=== PATIENT | female | born 1975 | race African-American/Black ===

== ENCOUNTER 2017-04-15 08:28 | Emergency (ER) | payer MEDICAID ==
[~2017-04-15] VITALS: Ht 170.2 cm; Wt 132.0 kg
[~2017-04-15 08:28] MED LIST: ALBU8I INH; AMLO5TAB22 PO; CLON1TAB PO; LORTA5 PO; PROT40TA PO; WALKER ROLLING; Z.0.COMMODE-3:1; Z.0.WALKERFRONT; Z.0.WHEELBAR
[2017-04-15 08:33] VITALS: BP 160/84; PULSE 68; RESP 22; TEMP 98.4; O2SAT 98
[2017-04-15] MEDS ORDERED: VENTAER INH (09:02)
[2017-04-15] MEDS ORDERED: KETOROLAC TROMETHAMINE 30 MG/ML (IVP) VIAL IV PUSH ONE (09:30)
[2017-04-15] MEDS: RESP: ALBUTEROL 2.5 MG/3 ML NEB (SCH) INH (09:43)
[2017-04-15] MEDS ORDERED: RESP: ALBUTEROL 2.5 MG/IPRATROPIUM 0.5 MG NEB (SCH) INH ONE (09:45)
[2017-04-15 09:54] LABS: AUTOMATED NEUTROPHIL # 9.2 TH/MM3 (1.8-7.7); BASOPHIL % 0.4 % (0.0-2.0); EOSINOPHIL % 0.1 % (0.0-4.0); HEMATOCRIT 37.6 % (35.0-46.0); HEMOGLOBIN 12.7 GM/DL (11.6-15.3); MEAN CELL VOLUME 88.6 FL (80.0-100.0); MEAN CORPUSCULAR HEMOGLOBIN 29.9 PG (27.0-34.0); MEAN CORPUSCULAR HGB CONC 33.7 % (32.0-36.0); MEAN PLATELET VOLUME 8.9 FL (7.0-11.0); MONO % 9.4 % (0.0-8.0); MONOCYTE # 1.2 TH/MM3 (0-0.9); NEUT % 74.1 % (16.0-70.0); PLATELET COUNT 235 TH/MM3 (150-450); RED BLOOD COUNT 4.24 MIL/MM3 (4.00-5.30); RED CELL DISTRIBUTION WIDTH 13.5 % (11.6-17.2); WHITE BLOOD COUNT 12.4 TH/MM3 (4.0-11.0)
--- NOTE | 2017-04-15 10:05 | PD ---
HPI Chief Complaint: Cold / Flu Symptoms Time Seen by Provider: 09:25 Travel History International Travel<30 days: No Contact w/Intl Traveler<30days: No Traveled to known affect area: No History of Present Illness HPI This is a 41-year-old female with a history of multiple sclerosis, presents today with moist URI symptoms. Patient reports over the last 2 days she's had cold and flu symptoms. She states that she's had progressive cough with productive phlegm. She reports brown colored phlegm. She reports subjective fevers although has not taken her temperature. The patient also reports that she fell this morning striking her left lateral chest wall and left hip. She is able to ambulatory however reports pain. Patient has ill contacts with a friend who has flulike symptoms. Patient reports severe weakness associated with her cough and congestion. PFSH Past Medical History Anxiety: Yes Depression: Yes Cancer: No Cardiovascular Problems: Yes Chest Pain: Yes (PALPITATIONS) Diabetes: Yes Diminished Hearing: No Endocrine: No Gastrointestinal Disorders: Yes GERD: Yes Genitourinary: Yes Headaches: Yes Hypertension: Yes Immune Disorder: No Implanted Vascular Access Dvce: No Musculoskeletal: No Neurologic: Yes (MS) Psychiatric: No Reproductive: No Respiratory: Yes Immunizations Current: No Migraines: Yes Seizures: No ?: Not LMP: 04/01/2017 Menopausal: No : 1 Para: 1 Past Surgical History Abdominal Surgery: Yes (GALLBLADDER REMOVED) Cholecystectomy: Yes Tonsillectomy: Yes Other Surgery: Yes (Adnoids and Tonsils) Social History Alcohol Use: No Tobacco Use: No Substance Use: Yes (MARIJUANA OCCASIONALLY) Allergies-Medications (Allergen,Severity, Reaction): Coded Allergies: penicillin G (Unverified Allergy, Severe, 04/15/17) Reported Meds & Prescriptions Reported Meds & Active Scripts Active Zithromax Z-Tereso (Azithromycin) 250 Mg Dspk 250 Mg PO DIRECTED 500 MG (2 tabs) day 1, then 1 tab days 2-5. Guaifenesin-Codeine Liq 100-10 Mg/5 Ml Soln 10 Ml PO Q6H PRN Ibuprofen 600 Mg Tab 600 Mg PO Q6H PRN Reported Gabapentin 100 Mg Cap 100 Mg PO TID Omeprazole 20 Mg Tab 20 Mg PO DAILY Ventolin Hfa 18 GM Inh (Albuterol Sulfate) 90 Mcg/Act Aer 1 Puff INH Q4H PRN Review of Systems Except as stated in HPI: all other systems reviewed are Neg General / Constitutional: Positive: Fever, No: Chills (subjective) HENT: Positive: Lightheadedness, Congestion, Other (sinus congestion), No: Headaches, Neck Pain Cardiovascular: No: Chest Pain or Discomfort, Palpitations Respiratory: Positive: Cough (productive brown phlegm), Shortness of Breath, Wheezing Gastrointestinal: No: Nausea, Vomiting, Abdominal Pain Genitourinary: No: Frequency, Dysuria Musculoskeletal: Positive: Weakness (neurologic), Pain (left lateral ribs and left hip) Neurologic: Positive: Weakness (generalized), No: Dizziness, Headache Physical Exam Narrative GENERAL: Well-developed female with obvious coughing when I entered the room. SKIN: Focused skin assessment warm/dry. HEAD: Atraumatic. Normocephalic. EYES: No scleral icterus. No injection or drainage. ENT: No nasal bleeding or discharge. Mucous membranes pink and moist. Positive rhinorrhea. NECK: Trachea midline. No JVD. CARDIOVASCULAR: Sinus tachycardia with a rate of 104 No murmur appreciated. RESPIRATORY: Positive mild accessory muscle use. Coarse rhonchi bilaterally. GASTROINTESTINAL: Abdomen soft, non-tender, nondistended. MUSCULOSKELETAL: No obvious deformities. No clubbing. No cyanosis. No edema. Tenderness over the left lateral hip. No shortening of the leg. NEUROLOGICAL: Awake and alert. No obvious cranial nerve deficits. Motor grossly within normal limits. Normal speech. Data Data Last Documented VS Vital Signs Date Time Temp Pulse Resp B/P (MAP) Pulse Ox O2 Delivery O2 Flow Rate FiO2 04/15/17 09:59 (109) Room Air 04/15/17 08:53 93 12 98 04/15/17 08:33 98.4 Orders Orders Complete Blood Count With Diff (04/15/17 09:25) Comprehensive Metabolic Panel (04/15/17 09:25) Ckmb (Isoenzyme) Profile (04/15/17 09:25) Troponin I (04/15/17 09:25) Blood Culture (04/15/17 09:25) Influenzae A/B Antigen (04/15/17 09:25) Iv Access Insert/Monitor (04/15/17 09:25) Ecg Monitoring (04/15/17 09:25) Oximetry (04/15/17 09:25) Ketorolac Inj (Toradol Inj) (04/15/17 09:30) Ribs, Uni (W/Exp Cxr-Min 3vw) (04/15/17 09:25) Hip, Uni(Ap&Lat) Wo Ap Pelvis (04/15/17 09:25) Lactic Acid (04/15/17 09:34) Albuterol-Ipratropium Neb (Duoneb Neb) (04/15/17 09:45) Albuterol Neb (Albuterol Neb) (04/15/17 09:45) CKMB (04/15/17 09:35) CKMB% (04/15/17 09:35) Labs Laboratory Tests Test 04/15/17 09:35 White Blood Count 12.4 TH/MM3 Red Blood Count 4.24 MIL/MM3 Hemoglobin 12.7 GM/DL Hematocrit 37.6 % Mean Corpuscular Volume 88.6 FL Mean Corpuscular Hemoglobin 29.9 PG Mean Corpuscular Hemoglobin Concent 33.7 % Red Cell Distribution Width 13.5 % Platelet Count 235 TH/MM3 Mean Platelet Volume 8.9 FL Neutrophils (%) (Auto) 74.1 % Lymphocytes (%) (Auto) 16.0 % Monocytes (%) (Auto) 9.4 % Eosinophils (%) (Auto) 0.1 % Basophils (%) (Auto) 0.4 % Neutrophils # (Auto) 9.2 TH/MM3 Lymphocytes # (Auto) 2.0 TH/MM3 Monocytes # (Auto) 1.2 TH/MM3 Eosinophils # (Auto) 0.0 TH/MM3 Basophils # (Auto) 0.0 TH/MM3 CBC Comment DIFF FINAL Differential Comment Blood Urea Nitrogen 5 MG/DL Creatinine 0.58 MG/DL Random Glucose 115 MG/DL Total Protein 8.1 GM/DL Albumin 3.3 GM/DL Calcium Level 8.7 MG/DL Alkaline Phosphatase 51 U/L Aspartate Amino Transf (AST/SGOT) 29 U/L Alanine Aminotransferase (ALT/SGPT) 18 U/L Total Bilirubin 0.3 MG/DL Sodium Level 134 MEQ/L Potassium Level 4.4 MEQ/L Chloride Level 105 MEQ/L Carbon Dioxide Level 19.8 MEQ/L Anion Gap 9 MEQ/L Estimat Glomerular Filtration Rate 140 ML/MIN Lactic Acid Level 1.5 mmol/L Total Creatine Kinase 214 U/L Creatine Kinase MB LESS THAN 0.5 NG/ML Creatine Kinase MB % 0.2 % Troponin I LESS THAN 0.02 NG/ML MDM Medical Decision Making Medical Screen Exam Complete: Yes Emergency Medical Condition: Yes Differential Diagnosis Pneumonia versus bronchitis versus left rib fractures versus left hip fracture versus contusion Narrative Course 41 year old female with history of multiple sclerosis, presents today with points of cold and flu symptoms. The patient has coarse rhonchi in her upper respiratory area. Chest x-ray shows no evidence of acute infiltrate. X-rays of her left ribs and left hip show no evidence of acute injury. The patient has subjective fevers and chills. She has positive influenza test. She is 4 days out from her symptoms. At this point she will not benefit from the Tamiflu. She will be given a prescription for cough syrup with codeine. She' ll also be given a prescription for Motrin as she has Medicaid and states she cannot afford Motrin. She is instructed to return if she starts feeling worse. Diagnosis Primary Impression: Influenza A Additional Impressions: cough/bronchitis Multiple sclerosis Contusion of rib on left side Contusion of left hip Additional Instructions: Ice 24 hours to ribs and hip, then moist. Return if feeling worse. Drink plenty of fluids. You have influenza infection and are contagious. Med/Other Pt SpecificInfo: Prescription(s) given Scripts Azithromycin (Zithromax Z-Tereso) 250 Mg Dspk 250 MG PO DIRECTED for Infection, #1 DSPK 0 Refills 500 MG (2 tabs) day 1, then 1 tab days 2-5. Prov: Willis Boudreaux MD 04/15/17 Guaifenesin-Codeine Liq (Guaifenesin-Codeine Liq) 100-10 Mg/5 Ml Soln 10 ML PO Q6H Y for COUGH, #1 BOTTLE 0 Refills Prov: Willis Boudreaux MD 04/15/17 Ibuprofen (Ibuprofen) 600 Mg Tab 600 MG PO Q6H Y for Pain/Inflammation, #40 TAB 0 Refills Prov: Willis Boudreaux MD 04/15/17 Disposition: 01 DISCHARGE HOME Condition: Stable Willis Boudreaux MD Apr 15, 2017 10:05
[2017-04-15 10:07] LABS: ALBUMIN 3.3 GM/DL (3.4-5.0); ALT (GPT) 18 U/L (10-53); AST (GOT) 29 U/L (15-37); BICARBONATE 19.8 MEQ/L (21.0-32.0); BLOOD UREA NITROGEN 5 MG/DL (7-18); CALCIUM 8.7 MG/DL (8.5-10.1); CHLORIDE 105 MEQ/L (98-107); CREATININE 0.58 MG/DL (0.50-1.00); GLOMERULAR FILTRATION RATE 140 ML/MIN (>89); GLUCOSE,RANDOM 115 MG/DL (74-106); SODIUM (NA) 134 MEQ/L (136-145)
[2017-04-15 10:14] LABS: ALKALINE PHOSPHATASE 51 U/L (45-117); TOTAL BILIRUBIN ADULT 0.3 MG/DL (0.2-1.0); TOTAL PROTEIN 8.1 GM/DL (6.4-8.2); TROPONIN I LESS THAN 0.02 NG/ML (0.02-0.05)
--- NOTE | 2017-04-15 10:40 | RADRPT ---
EXAM DATE/TIME: 04/15/2017 10:10 [facility] COMPARISON: No previous studies available for comparison. INDICATIONS : Shortness of breath, chest pain and cough. MEDICAL HISTORY : Multiple sclerosis. Hypertension Gastroesophageal reflux disease. SURGICAL HISTORY : Cholecystectomy. Tonsillectomy. ENCOUNTER: Initial ACUITY: 4 - 6 days PAIN SCORE: 4/10 LOCATION: Left chest FINDINGS: Multiple views of the left ribs were performed. There is no evidence of displaced fracture. No dest ructive lesions or areas of periosteal thickening are seen. Expiratory view of the chest is negative for pneumothorax. The mediastinal structures are midline. CONCLUSION: Unremarakble examination of the left ribs and chest. Pascual Bucio MD on April 15, 2017 at 10:35 Board Certified Radiologist. This report was verified electronically.
--- NOTE | 2017-04-15 10:41 | RADRPT ---
EXAM DATE/TIME: 04/15/2017 10:17 [facility] COMPARISON: No previous studies available for comparison. INDICATIONS : Left hip pain, fall. MEDICAL HISTORY : Hypertension. Multiple sclerosis. SURGICAL HISTORY : Tonsillectomy. Cholecystectomy. ENCOUNTER: Initial ACUITY: 4 - 6 days PAIN SCORE: 10/10 LOCATION: Left hip FINDINGS: There is mild superior joint space narrowing, subchondral sclerosis and marginal osteophyte formation . No evidence of fracture or dislocation. The adjacent pelvis appears intact. Soft tissues are unrema rkable. CONCLUSION: Degenerative arthritic change. No acute bony findings. Pascual Bucio MD on April 15, 2017 at 10:39 Board Certified Radiologist. This report was verified electronically.
[2017-04-15] MEDS ORDERED: GABA100C4 PO (11:23)
[2017-04-15] MEDS ORDERED: OMEP20TA93 PO (11:23)
[2017-04-15] MEDS ORDERED: IBUP-232 PO (11:33)
[2017-04-15] MEDS ORDERED: ZITHTAB PO (11:33)
[2017-04-15] MEDS ORDERED: GUAI100S5 PO (11:33)
== END 2017-04-15 12:02 | disposition home or self-care (01) ==
LOC: NEPE 08:28
DX: J09.X2 Influenza due to identified novel influenza A virus with other respiratory manifestations (principal); G35 Multiple sclerosis; K21.9 Gastro-esophageal reflux disease without esophagitis; R06.02 Shortness of breath; S20.212A Contusion of left front wall of thorax, initial encounter; S70.02XA Contusion of left hip, initial encounter; W19.XXXA Unspecified fall, initial encounter
CPT/HCPCS: 71101; 73502; 80053; 82550; 82552; 83605; 84484; 85025; 87040; 87804; 94640; 94664; 96374; 99284; J1885; J7613

== ENCOUNTER 2017-10-12 09:46 | Inpatient (IN) | payer MEDICAID ==
[2017-10-12] VITALS (7 sets, daily range): BP systolic 130–162; BP diastolic 73–99; PULSE 78–116; RESP 18–20; TEMP 98–98.6; O2SAT 94–100
[~2017-10-12] VITALS: Ht 167.6 cm; Wt 145.6 kg
[~2017-10-12 09:46] MED LIST changes: -ALBU8I INH; -AMLO5TAB22 PO; -CLON1TAB PO; +GABA100C4 PO; +GUAI100S5 PO; +IBUP-232 PO; -LORTA5 PO; +OMEP20TA93 PO; -PROT40TA PO; +VENTAER INH; -WALKER ROLLING; -Z.0.COMMODE-3:1; -Z.0.WALKERFRONT; -Z.0.WHEELBAR; +ZITHTAB PO
[2017-10-12] MEDS ORDERED: SODIUM CHLORIDE 0.9% FLUSH 10 ML FLUSH IVF PRN (10:15)
[2017-10-12] MEDS ORDERED: MORPHINE SULFATE 4 MG/ML INJ IV PUSH ONE ×2 (10:15→13:15)
[2017-10-12] MEDS ORDERED: methylPREDNISolone SOD SUCC 125 MG/2 ML VIAL IV PUSH ONE (10:15)
[2017-10-12] MEDS ORDERED: ONDANSETRON ODT 4 MG TAB PO ONE (10:15)
[2017-10-12 10:45] LABS: AUTOMATED NEUTROPHIL # 8.9 TH/MM3 (1.8-7.7); BASOPHIL % 0.2 % (0.0-2.0); EOSINOPHIL # 0.1 TH/MM3 (0-0.4); EOSINOPHIL % 0.9 % (0.0-4.0); HEMATOCRIT 37.7 % (35.0-46.0); HEMOGLOBIN 12.8 GM/DL (11.6-15.3); LYMPH % 20.9 % (9.0-44.0); LYMPHOCYTE # 2.7 TH/MM3 (1.0-4.8); MEAN CELL VOLUME 90.5 FL (80.0-100.0); MEAN CORPUSCULAR HEMOGLOBIN 30.9 PG (27.0-34.0); MEAN CORPUSCULAR HGB CONC 34.1 % (32.0-36.0); MEAN PLATELET VOLUME 8.4 FL (7.0-11.0); MONO % 8.1 % (0.0-8.0); NEUT % 69.9 % (16.0-70.0); PLATELET COUNT 263 TH/MM3 (150-450); RED BLOOD COUNT 4.16 MIL/MM3 (4.00-5.30); RED CELL DISTRIBUTION WIDTH 14.1 % (11.6-17.2); WHITE BLOOD COUNT 12.8 TH/MM3 (4.0-11.0)
--- NOTE | 2017-10-12 10:52 | PD ---
HPI Chief Complaint: Pain: Acute or Chronic Time Seen by Provider: 10:13 Travel History International Travel<30 days: No Contact w/Intl Traveler<30days: No Traveled to known affect area: No History of Present Illness HPI 42-year-old female with history of multiple sclerosis diagnosed in 1999, presents emergency department with one-week history of increasing pain and weakness in the right lower extremity. Patient was hospitalized for similar symptoms in the left leg in July 2016. Patient states he is currently not taking any medication for her multiple sclerosis, and has not been following up with her neurologist. She also has complaints of increased cough, shortness of breath and wheezing over the past week as well. Patient has history of recurrent bronchitis for which he only uses Ventolin as needed. She states in the last several days she has had increased productive cough of brown sputum. She denies fever, chills, nausea, vomiting, or abdominal pain. Patient denies changes in her bowels or bladder. Patient denies numbness in the right lower extremity, but has pain in the right lower back and hip. She has weakness in the right leg. She denies weakness in the upper extremities, left leg, or other focal deficits. Pain is 8/10. PFSH Past Medical History Anxiety: Yes Depression: Yes Cancer: No Cardiovascular Problems: Yes (HTN) Chest Pain: Yes (PALPITATIONS) Diabetes: Yes Diminished Hearing: No Endocrine: No Gastrointestinal Disorders: Yes GERD: Yes Genitourinary: Yes Headaches: Yes Hypertension: Yes Immune Disorder: No Implanted Vascular Access Dvce: No Musculoskeletal: No Neurologic: Yes (MS) Psychiatric: No Reproductive: No Respiratory: Yes Immunizations Current: No Migraines: Yes Seizures: No ?: Not LMP: 10/10/17 Menopausal: No : 1 Para: 1 Past Surgical History Abdominal Surgery: Yes (GALLBLADDER REMOVED) Cholecystectomy: Yes Tonsillectomy: Yes Other Surgery: Yes (Adnoids and Tonsils) Social History Alcohol Use: No Tobacco Use: No Substance Use: Yes (MARIJUANA OCCASIONALLY) Allergies-Medications (Allergen,Severity, Reaction): Coded Allergies: penicillin G (Unverified Allergy, Severe, 04/15/17) Reported Meds & Prescriptions Reported Meds & Active Scripts Active Zithromax Z-Tereso (Azithromycin) 250 Mg Dspk 250 Mg PO DIRECTED 500 MG (2 tabs) day 1, then 1 tab days 2-5. Guaifenesin-Codeine Liq 100-10 Mg/5 Ml Soln 10 Ml PO Q6H PRN Ibuprofen 600 Mg Tab 600 Mg PO Q6H PRN Reported Gabapentin 100 Mg Cap 100 Mg PO TID Omeprazole 20 Mg Tab 20 Mg PO DAILY Ventolin Hfa 18 GM Inh (Albuterol Sulfate) 90 Mcg/Act Aer 1 Puff INH Q4H PRN Review of Systems Except as stated in HPI: all other systems reviewed are Neg General / Constitutional: No: Fever, Chills Eyes: No: Visual changes HENT: Positive: Rhinitis, Rhinorrhea, Congestion, No: Headaches, Vertigo, Lightheadedness, Sore Throat, Nosebleed, Neck Stiffness, Neck Pain, Earache Cardiovascular: No: Chest Pain or Discomfort Respiratory: Positive: Cough, Shortness of Breath, Wheezing Gastrointestinal: No: Nausea, Vomiting, Diarrhea, Abdominal Pain Genitourinary: No: Dysuria Musculoskeletal: Positive: Myalgias, Arthralgias, Limited ROM, Weakness, Pain Skin: No Rash Neurologic: No: Weakness Psychiatric: No: Depression Endocrine: No: Polydipsia Hematologic/Lymphatic: No: Easy Bruising Physical Exam Narrative GENERAL: Moderately obese female in mild to moderate distress. Patient has been using walker for ambulation with difficulty. SKIN: Warm and dry. Normal color. Normal turgor. No rash. HEAD: Atraumatic. Normocephalic. EYES: Pupils equal and round. No scleral icterus. No injection or drainage. ENT: No nasal bleeding or discharge. Mucous membranes pink and moist. Pharynx is clear. Airways patent NECK: Trachea midline. Supple and nontender. CARDIOVASCULAR: Regular rate and rhythm. RESPIRATORY: No accessory muscle use. Clear to auscultation. Breath sounds equal bilaterally. GASTROINTESTINAL: Abdomen soft, non-tender, nondistended. Hepatic and splenic margins not palpable. No CVA tenderness. MUSCULOSKELETAL: Extremities without clubbing, cyanosis, or edema. No obvious deformities. Patient has positive straight leg raise pain at 30 on the right. Patient complains of pain with palpation in the right lower lumbar and sciatic region as well as the lateral right hip. NEUROLOGICAL: Awake and alert. No obvious cranial nerve deficits. Patient has lizzie weakness of the right leg, but no numbness. Vascular exam is normal. Deep tendon reflexes are diminished on the right leg at both the patella and Achilles tendon. Normal speech. PSYCHIATRIC: Appropriate mood and affect; insight and judgment normal. Data Data Last Documented VS Vital Signs Date Time Temp Pulse Resp B/P (MAP) Pulse Ox O2 Delivery O2 Flow Rate FiO2 10/12/17 10:43 97 Nasal Cannula 2.00 10/12/17 10:32 78 18 130/88 (102) 10/12/17 09:50 98.6 Orders Orders Complete Blood Count With Diff (10/12/17 10:14) Comprehensive Metabolic Panel (10/12/17 10:14) Act Partial Throm Time (Ptt) (10/12/17 10:14) Prothrombin Time / Inr (Pt) (10/12/17 10:14) Urinalysis - C+S If Indicated (10/12/17 10:14) Iv Access Insert/Monitor (10/12/17 10:14) Ecg Monitoring (10/12/17 10:14) Oximetry (10/12/17 10:14) Oxygen Administration (10/12/17 10:14) Chest, Pa & Lat (10/12/17 10:14) Sodium Chloride 0.9% Flush (Ns Flush) (10/12/17 10:15) Methylprednisolone So Succ Inj (Solumedr (10/12/17 10:15) Albuterol-Ipratropium Neb (Duoneb Neb) (10/12/17 10:15) Morphine Inj (Morphine Inj) (10/12/17 10:15) Ondansetron Odt (Zofran Odt) (10/12/17 10:15) Labs Laboratory Tests Test 10/12/17 10:33 White Blood Count 12.8 TH/MM3 Red Blood Count 4.16 MIL/MM3 Hemoglobin 12.8 GM/DL Hematocrit 37.7 % Mean Corpuscular Volume 90.5 FL Mean Corpuscular Hemoglobin 30.9 PG Mean Corpuscular Hemoglobin Concent 34.1 % Red Cell Distribution Width 14.1 % Platelet Count 263 TH/MM3 Mean Platelet Volume 8.4 FL Neutrophils (%) (Auto) 69.9 % Lymphocytes (%) (Auto) 20.9 % Monocytes (%) (Auto) 8.1 % Eosinophils (%) (Auto) 0.9 % Basophils (%) (Auto) 0.2 % Neutrophils # (Auto) 8.9 TH/MM3 Lymphocytes # (Auto) 2.7 TH/MM3 Monocytes # (Auto) 1.0 TH/MM3 Eosinophils # (Auto) 0.1 TH/MM3 Basophils # (Auto) 0.0 TH/MM3 CBC Comment DIFF FINAL Differential Comment Prothrombin Time 10.0 SEC Prothromb Time International Ratio 1.0 RATIO Activated Partial Thromboplast Time 24.7 SEC Blood Urea Nitrogen 6 MG/DL Creatinine 0.64 MG/DL Random Glucose 110 MG/DL Total Protein 7.8 GM/DL Albumin 3.7 GM/DL Calcium Level 9.1 MG/DL Alkaline Phosphatase 61 U/L Aspartate Amino Transf (AST/SGOT) 13 U/L Alanine Aminotransferase (ALT/SGPT) 21 U/L Total Bilirubin 0.3 MG/DL Sodium Level 141 MEQ/L Potassium Level 3.7 MEQ/L Chloride Level 108 MEQ/L Carbon Dioxide Level 23.9 MEQ/L Anion Gap 9 MEQ/L Estimat Glomerular Filtration Rate 124 ML/MIN MDM Medical Decision Making Medical Screen Exam Complete: Yes Emergency Medical Condition: Yes Medical Record Reviewed: Yes Differential Diagnosis Recurrent chronic bronchitis. Wheezing. Multiple sclerosis with acute flare. Right leg weakness and pain. Narrative Course Patient appears medically stable at time of exam. Labs ordered including CBC, CMP, and urinalysis. Chest x-ray is ordered PA and lateral IV access is obtained the patient is given 125 mg methylprednisone IV, 4 mg morphine IV, 4 mg Zofran ODT p.o., and a DuoNeb 3. Patient discussed with Dr. Jansen. Admission is recommended for her presumed multiple sclerosis flare. MRI is not ordered in the ED. CBC shows leukocytosis of 12.8. No significant shift. Coagulation studies are normal. Chemistries are unremarkable. Diagnosis Primary Impression: Exacerbation of multiple sclerosis Condition: Stable Luke Cortes Oct 12, 2017 10:52
[2017-10-12 11:01] LABS: ALBUMIN 3.7 GM/DL (3.4-5.0); AST (GOT) 13 U/L (15-37); BICARBONATE 23.9 MEQ/L (21.0-32.0); BLOOD UREA NITROGEN 6 MG/DL (7-18); CALCIUM 9.1 MG/DL (8.5-10.1); CHLORIDE 108 MEQ/L (98-107); CREATININE 0.64 MG/DL (0.50-1.00); GLOMERULAR FILTRATION RATE 124 ML/MIN (>89); GLUCOSE,RANDOM 110 MG/DL (74-106); SODIUM (NA) 141 MEQ/L (136-145)
[2017-10-12 11:05] LABS: ALKALINE PHOSPHATASE 61 U/L (45-117); ALT (GPT) 21 U/L (10-53); TOTAL BILIRUBIN ADULT 0.3 MG/DL (0.2-1.0); TOTAL PROTEIN 7.8 GM/DL (6.4-8.2)
[2017-10-12] MEDS: RESP: ALBUTEROL 2.5 MG/IPRATROPIUM 0.5 MG NEB (SCH) INH (11:13)
[2017-10-12] MEDS ORDERED: cefTRIAXone INJ 1,000 MG in SODIUM CHLORIDE 0.9% INJ 100 ML IV ONE (12:00)
[2017-10-12] MEDS: AZITHROMYCIN 250 MG TAB PO SCH (12:11)
--- NOTE | 2017-10-12 12:20 | RADRPT ---
EXAM DATE: 10/12/2017 11:55 AM EDT AGE/SEX: 42 years / Female INDICATIONS: Short of breath CLINICAL DATA: This is the patient's initial encounter. Patient reports that signs and symptoms have been present for 1 day and indicates a pain score of 0/10. MEDICAL/SURGICAL HISTORY: . Hypertension. Multiple Sclerosis, bronchitis None. COMPARISON: No prior exams available for comparison. FINDINGS: PA and lateral views of the chest demonstrate the lungs to be symmetrically aerated without evidence of mass, infiltrate or effusion. The cardiomediastinal contours are unremarkable. Osseous structures are intact. CONCLUSION: No acute cardiopulmonary disease Electronically signed by: Ankit Eason MD 10/12/2017 12:19 PM EDT
[2017-10-12] MEDS ORDERED: DEXTROSE 50% IN WATER 50 ML VIAL(D50) IV PUSH PRN (13:15)
[2017-10-12] MEDS ORDERED: GLUCAGON 1 MG/ML VIAL OTHER PRN (13:15)
[2017-10-12] MEDS ORDERED: LACTULOSE SYRUP 20 GM/30 ML CUP PO PRN (13:15)
[2017-10-12] MEDS ORDERED: SODIUM CHLORIDE 0.9% FLUSH 10 ML FLUSH IV FLUSH PRN (13:15)
[2017-10-12] MEDS ORDERED: ACETAMINOPHEN 325 MG TAB PO PRN ×2 (13:15)
[2017-10-12] MEDS ORDERED: ONDANSETRON HCL 4 MG/2 ML VIAL IVP PRN (13:15)
[2017-10-12] MEDS ORDERED: BISACODYL 10 MG SUPP RECTAL PRN (13:15)
[2017-10-12] MEDS ORDERED: SENNOSIDES 8.6 MG TAB PO PRN (13:15)
[2017-10-12] MEDS ORDERED: ALBUTEROL SULFATE 90 MCG/ACT HFA 8 GM INHALER INH PRN (13:15)
[2017-10-12] MEDS ORDERED: NALOXONE HCL 0.4 MG/ML AMP IV PUSH PRN (13:15)
[2017-10-12] MEDS ORDERED: MORPHINE SULFATE 4 MG/ML INJ IV PUSH PRN (13:15)
[2017-10-12] MEDS ORDERED: ACETAMINOPHEN/HYDROcodone 325 MG/5 MG TAB PO PRN (13:15)
[2017-10-12] MEDS ORDERED: MAGNESIUM HYDROXIDE SUSP 30 ML CUP PO PRN (13:15)
[2017-10-12] MEDS ORDERED: methylPREDNISolone SO SUCC INJ 1,000 MG in DEXTROSE 5% IN WATER 100ML INJ 100 ML IV ONE ×2 (13:30)
--- NOTE | 2017-10-12 13:39 | HHI.HP ---
[facility] Juan Pablo Renteria MD Admission Diagnosis MS Flair/Right Leg Pain and Weakness/Bronchitis Wheezing Diagnoses: Chief Complaint: Right lower extremity pain and weakness Travel History International Travel<30 Days: No Contact w/Intl Traveler <30 Da: No Traveled to Known Affected Are: No History of Present Illness This is a 42-year-old female who presents to the emergency department complaining of 2 day history of increasing pain and weakness of the right lower extremity. Denies trauma. She reports of severe sharp pulsating right hip pain without radiation. No numbness or incontinence, visual or swallowing difficulties. She has history of multiple sclerosis diagnosed in 1999 and has been hospitalized for similar symptoms in the left lower extremity back in 2017. She has been noncompliant with medical therapy and has not followed up with neurology. She also reports of a one-week history of productive cough of brown phlegm, wheezing and shortness of breath. She has history of recurrent bronchitis and an ex-smoker. No fever or chills. All other systems reviewed negative. Per neurology, recommended methylprednisolone thousand milligrams IV daily for 3 days and obtain MRI of the cervical, thoracic and lumbar spine. Review of Systems Except as stated in HPI: all other systems reviewed are Neg Past Family Social History Past Medical History As previously mentioned. History of obesity, hypertension, palpitations and GERD. Denies history of diabetes Past Surgical History Cholecystectomy, adenoidectomy and tonsillectomy Reported Medications Albuterol inhaler Allergies: Coded Allergies: penicillin G (Unverified Allergy, Severe, 04/15/17) Family History Thyroid disease and diabetes mellitus Social History Does not drink. Ex-smoker. Abuses marijuana occasionally Physical Exam Vital Signs Vital Signs Date Time Temp Pulse Resp B/P (MAP) Pulse Ox O2 Delivery O2 Flow Rate FiO2 10/12/17 13:00 18 10/12/17 10:43 97 Nasal Cannula 2.00 10/12/17 10:32 78 18 130/88 (102) 97 Room Air 10/12/17 09:50 98.6 78 19 131/73 (92) 100 Physical Exam GENERAL: This is an obese, well-developed patient, in no apparent distress. SKIN: No rashes, ecchymoses or lesions. Cool and dry. HEAD: Atraumatic. Normocephalic. No temporal or scalp tenderness. EYES: Pupils equal round and reactive. Extraocular motions intact. No scleral icterus. No injection or drainage. ENT: Nose without bleeding, purulent drainage or septal hematoma. Throat without erythema, tonsillar hypertrophy or exudate. Uvula midline. Airway patent. NECK: Trachea midline. No JVD or lymphadenopathy. Supple, nontender, no meningeal signs. CARDIOVASCULAR: Regular rate and rhythm without murmurs, gallops, or rubs. RESPIRATORY: Clear to auscultation. Breath sounds equal bilaterally. No wheezes , rales, or rhonchi. GASTROINTESTINAL: Abdomen soft, non-tender, nondistended. No guarding. MUSCULOSKELETAL: Extremities without clubbing, cyanosis, or edema. No joint tenderness, effusion, or edema noted. No calf tenderness. Negative Homans sign bilaterally. NEUROLOGICAL: Awake and alert. Cranial nerves II through XII intact. Derrick weakness of the right lower extremity. Intact sensation. Normal speech. Laboratory Laboratory Tests Test 10/12/17 10:33 White Blood Count 12.8 Red Blood Count 4.16 Hemoglobin 12.8 Hematocrit 37.7 Mean Corpuscular Volume 90.5 Mean Corpuscular Hemoglobin 30.9 Mean Corpuscular Hemoglobin Concent 34.1 Red Cell Distribution Width 14.1 Platelet Count 263 Mean Platelet Volume 8.4 Neutrophils (%) (Auto) 69.9 Lymphocytes (%) (Auto) 20.9 Monocytes (%) (Auto) 8.1 Eosinophils (%) (Auto) 0.9 Basophils (%) (Auto) 0.2 Neutrophils # (Auto) 8.9 Lymphocytes # (Auto) 2.7 Monocytes # (Auto) 1.0 Eosinophils # (Auto) 0.1 Basophils # (Auto) 0.0 CBC Comment DIFF FINAL Differential Comment Prothrombin Time 10.0 Prothromb Time International Ratio 1.0 Activated Partial Thromboplast Time 24.7 Blood Urea Nitrogen 6 Creatinine 0.64 Random Glucose 110 Total Protein 7.8 Albumin 3.7 Calcium Level 9.1 Alkaline Phosphatase 61 Aspartate Amino Transf (AST/SGOT) 13 Alanine Aminotransferase (ALT/SGPT) 21 Total Bilirubin 0.3 Sodium Level 141 Potassium Level 3.7 Chloride Level 108 Carbon Dioxide Level 23.9 Anion Gap 9 Estimat Glomerular Filtration Rate 124 Result Diagram: 10/12/17 1033 10/12/17 1033 Imaging Last Impressions Chest X-Ray 10/12/17 1014 Signed Impressions: CONCLUSION: No acute cardiopulmonary disease Caprini VTE Risk Assessment Caprini VTE Risk Assessment: No/Low Risk (score <= 1) Caprini Risk Assessment Model Point Value = 1 Point Value = 2 Point Value = 3 Point Value = 5 Age 41-60 Minor surgery BMI > 25 kg/m2 Swollen legs Varicose veins or History of unexplained or recurrent spontaneous Oral contraceptives or hormone replacement Sepsis (< 1 month) Serious lung disease, including pneumonia (< 1 month) Abnormal pulmonary function Acute myocardial infarction Congestive heart failure (< 1 month) History of inflammatory bowel disease Medical patient at bed rest Age 61-74 Arthroscopic surgery Major open surgery (> 45 min) Laparoscopic surgery (> 45 min) Malignancy Confined to bed (> 72 hours) Immobilizing plaster cast Central venous access Age >= 75 History of VTE Family history of VTE Factor V Leiden Prothrombin [id number] Lupus anticoagulant Anticardiolipin antibodies Elevated serum homocysteine Heparin-induced thrombocytopenia Other congenital or acquired thrombophilia Stroke (< 1 month) Elective arthroplasty Hip, pelvis, or leg fracture Acute spinal cord injury (< 1 month) Prophylaxis Regimen Total Risk Factor Score Risk Level Prophylaxis Regimen 0-1 Low Early ambulation 2 Moderate Order ONE of the following: *Sequential Compression Device (SCD) *Heparin 5000 units SQ BID 3-4 Higher Order ONE of the following medications: *Heparin 5000 units SQ TID *Enoxaparin/Lovenox 40 mg SQ daily (WT < 150 kg, CrCl > 30 mL/min) *Enoxaparin/Lovenox 30 mg SQ daily (WT < 150 kg, CrCl > 10-29 mL/min) *Enoxaparin/Lovenox 30 mg SQ BID (WT < 150 kg, CrCl > 30 mL/min) AND/OR *Sequential Compression Device (SCD) 5 or more Highest Order ONE of the following medications: *Heparin 5000 units SQ TID (Preferred with Epidurals) *Enoxaparin/Lovenox 40 mg SQ daily (WT < 150 kg, CrCl > 30 mL/min) *Enoxaparin/Lovenox 30 mg SQ daily (WT < 150 kg, CrCl > 10-29 mL/min) *Enoxaparin/Lovenox 30 mg SQ BID (WT < 150 kg, CrCl > 30 mL/min) AND *Sequential Compression Device (SCD) Assessment and Plan Assessment and Plan This is a 42-year-old female who presents to the emergency department complaining of 2 day history of increasing pain and weakness of the right lower extremity. Denies trauma. She reports of severe sharp pulsating right hip pain without radiation. No numbness or incontinence, visual or swallowing difficulties. She has history of multiple sclerosis diagnosed in 1999 and has been hospitalized for similar symptoms in the left lower extremity back in 2017. She has been noncompliant with medical therapy and has not followed up with neurology. MS flare. Per neurology, recommended methylprednisolone thousand milligrams IV daily for 3 days and obtain MRI of the cervical, thoracic and lumbar spine. Pain management with Lortab and IV morphine consult regarding narcotics Acute bronchitis. Patient received IV Rocephin and Zithromax, nebulizations and IV steroids. Continue Zithromax p.o., nebulizations and steroids. Tobacco cessation Multiple medical conditions of obesity, hypertension, palpitations and GERD. Monitor BP. Weight reduction DVT prophylaxis with SCD and early ambulation Discussed Condition With pt Armando Brar MD Oct 12, 2017 13:39
[2017-10-12] MEDS ORDERED: LORazepam 2 MG/ML VIAL IV PUSH ONE (14:00)
[2017-10-12 15:10] LABS: BILIRUBIN, URINE NEG (NEG); BLOOD, URINE SMALL (NEG); GLUCOSE,URINE NEG (NEG); KETONE, URINE 20 mg/dL (NEG); MUCUS URINE FEW /lpf (OCC); NITRITE,URINE NEG (NEG); SQUAMOUS EPITHELIAL CELL URINE 2 /hpf (0-5); URINE COLOR YELLOW (YELLW/STRAW); URINE LEUKOCYTE ESTERASE NEG (NEG)
--- NOTE | 2017-10-12 15:50 | RADRPT ---
EXAM DATE: 10/12/2017 3:37 PM EDT AGE/SEX: 42 years / Female INDICATIONS: Multiple sclerosis. Right lower extremity pain and weakness. CLINICAL DATA: This is the patient's initial encounter. Patient reports that signs and symptoms have been present for 1 day and indicates a pain score of 7/10. MEDICAL/SURGICAL HISTORY: Multiple sclerosis. Cholecystectomy. Tonsillectomy. COMPARISON: No prior exams available for comparison. TECHNIQUE: Multiplanar, multisequence MRI examination of the cervical spine was performed without co ntrast. FINDINGS: Exam degraded by motion artifact. At C2-3 there is a broad-based disc protrusion effacing the anterio r thecal sac without significant cord compression. No foraminal stenosis. At C3-4 there is a broad-based disc protrusion with extruded disc material extending inferiorly. This results in a focal moderate canal stenosis in the AP dimension on the left side with mild compressio n on the anterior left hemicord and deflection of the cord posteriorly. At C4-5 posterior disc osteophyte complex partially effaces the anterior thecal sac. Mild foraminal e ncroachment. At C5-6 there is a small left paracentral disc protrusion effacing the anterior thecal sac without si gnificant canal stenosis. At C6-7-T1 there is no significant canal or foraminal stenosis. CONCLUSION: 1. At C3-4 broad-based disc protrusion and extruded disc material results in moderate AP canal steno sis on the left and mild compression on the left hemicord. 2. At C2-3 broad-based disc protrusion effaces the anterior thecal sac without cord compression. 3. At C5-6 small left paracentral disc protrusion effaces the anterior thecal sac without cord impin gement. 4. Normal alignment. No definite cord signal abnormality. Electronically signed by: Gennaro oGoden MD 10/12/2017 3:49 PM EDT
--- NOTE | 2017-10-12 15:58 | RADRPT ---
EXAM DATE: 10/12/2017 3:39 PM EDT AGE/SEX: 42 years / Female INDICATIONS: Multiple sclerosis. Right lower extremity pain and weakness. CLINICAL DATA: This is the patient's initial encounter. Patient reports that signs and symptoms have been present for 1 day and indicates a pain score of 6/10. MEDICAL/SURGICAL HISTORY: Multiple sclerosis. Cholecystectomy. Tonsillectomy. COMPARISON: No prior exams available for comparison. TECHNIQUE: Multiplanar, multisequence MRI of the thoracic spine was performed. FINDINGS: At Q4-5-7-4-5-6-7 there is no significant abnormality. At T7-8 there is a small central disc protrusion without stenosis. At T8-9 posterior disc osteophyte complex results in partial effacement of the anterior thecal sac. At T9-T10 left paracentral disc protrusion results in left lateral recess stenosis and mild impressio n on the left hemicord. At [id number] there is some posterior osteophytic ridging resulting in mild encroachment on the anteri or thecal sac. CONCLUSION: 1. At T7-8 there is a small central disc protrusion without stenosis. 2. At T9-10 small left paracentral disc protrusion with minimal impression on the left hemicord. 3. At [id number] there is some osteophytic ridging with mild encroachment on the thecal sac. 4. No cord signal abnormality. Normal alignment. No acute fracture or spondylolisthesis. Electronically signed by: Gennaro Gooden MD 10/12/2017 3:56 PM EDT
[2017-10-12] MEDS: RESP: ALBUTEROL 2.5 MG/IPRATROPIUM 0.5 MG NEB (SCH) NEB ×2 (16:36→20:39)
[2017-10-12] MEDS ORDERED: INSULIN ASPART SUPPLEMENTAL SCALE SQ SCH (17:00)
--- NOTE | 2017-10-12 18:03 | MB ---
cc: Phillip Pitts MD, PhD DATE: 10/12/2017 REASON FOR CONSULTATION: Multiple sclerosis. HISTORY OF PRESENT ILLNESS: Ms. Caal is a very pleasant 42-year-old female who has a history of multiple sclerosis diagnosed in the year 1999, when she presented with visual symptoms bilaterally and weakness. She had a positive MRI of the brain and lumbar puncture, was on Avonex for a while, but because of insurance reasons was not able to continue and stopped this about 5 or 6 years ago. She had a number of exacerbations with increasing weakness, usually treated successfully with steroids. She has never been on any other immunomodulators. PAST MEDICAL HISTORY: As above, also cholecystectomy, adenoidectomy, tonsillectomy, GERD. PHYSICAL EXAMINATION: VITAL SIGNS: Reveals blood pressure 162/99, pulse is 98, respiratory rate is 20, temperature 98 degrees. NEUROLOGIC: Higher cortical functions are normal. Cranial nerves are intact. Motor: She is mildly weak in the right arm at 4/5, with normal strength left arm 5/5. Left leg is weak at 4/5, right leg is 3/5 in strength both proximally and distally. Reflexes are 3+ symmetric. IMAGING: Thoracic spine MRI, small disk protrusions at T7-T8, T9-T10, T11-T12, with no stenosis, no cord signal abnormality is identified. Cervical spine MRI, C3-C4, there is stenosis with mild cord compression on the left. Mild spondylosis at C2-C3 without cord compression. I did review the cervical MRI. She does have a disc osteophyte complex at C3-C4, which does appear to encroach upon the anterior surface of the cord on the left side. However, there does appear to be a generous spinal canal with CSF around the cord. No cord signal abnormality identified. LABORATORY DATA: White count 12,800, hemoglobin 12.8, hematocrit 37%, platelet count 263,000. Sodium is 141, potassium 3.7, chloride 108, CO2 24. The BUN is 6, creatinine 0.64, GFR is 124, glucose 110. PT 10, INR 1, aPTT 24.7. Urinalysis pH is 5, specific gravity 1.016, protein is 30, less than 1 WBC is present. IMPRESSION: Multiple sclerosis exacerbation. RECOMMENDATIONS: Would recommend Solu-Medrol 1000 mg daily for 3 days, possibly up to 5 days if she does not improve. Also, get a MRI of the brain. I did discuss with her going on long-term immunomodulators in the future and will discuss this with her further. Phillip Pitts MD, PhD CHRISTOPHER/VENU , 05:33 PM , 06:02 PM
[2017-10-12] MEDS: ACETAMINOPHEN/HYDROcodone 325 MG/7.5 MG TAB PO PRN (20:21)
[2017-10-12] MEDS: DOCUSATE SODIUM 50 MG/SENNA 8.6 MG TAB PO SCH (20:21)
[2017-10-12] MEDS: SODIUM CHLORIDE 0.9% FLUSH 10 ML FLUSH IV FLUSH SCH (20:22)
[2017-10-13] VITALS (9 sets, daily range): BP systolic 124–162; BP diastolic 69–97; PULSE 72–93; RESP 17–18; TEMP 97.7–99.4; O2SAT 93–100
[2017-10-13] MEDS ORDERED: ENALAPRILAT 1.25 MG/ML VIAL IV PUSH PRN (04:15)
--- NOTE | 2017-10-13 07:16 | HHI.PR ---
Subjective Remarks Follow-up MS and bronchitis. Improving right lower extremity weakness as well as wheezing Objective Vitals Vital Signs Date Time Temp Pulse Resp B/P (MAP) Pulse Ox O2 Delivery O2 Flow Rate FiO2 10/13/17 06:24 18 10/13/17 04:00 98.4 86 18 162/86 (111) 97 10/13/17 04:00 78 10/13/17 00:00 72 10/13/17 00:00 97.9 93 18 131/78 (95) 93 10/12/17 22:26 16 10/12/17 20:30 Room Air 10/12/17 20:00 98.0 109 20 139/95 (110) 98 10/12/17 20:00 116 10/12/17 16:05 94 10/12/17 15:32 Room Air 10/12/17 15:30 98.4 98 20 162/99 (120) 94 10/12/17 15:19 97 Room Air 10/12/17 14:45 88 18 150/90 (110) 98 10/12/17 13:00 18 10/12/17 10:43 97 Nasal Cannula 2.00 10/12/17 10:32 78 18 130/88 (102) 97 Room Air 10/12/17 09:50 98.6 78 19 131/73 (92) 100 I/O 10/12/17 10/12/17 10/12/17 10/13/17 10/13/17 10/13/17 07:00 15:00 23:00 07:00 15:00 23:00 Intake Total 100 ml 480 ml 240 ml Balance 100 ml 480 ml 240 ml Intake Oral 480 ml 240 ml IV Total 100 ml # Voids 3 # Bowel Movements 0 Result Diagram: 10/12/17 1033 10/12/17 1033 Imaging Last Impressions Chest X-Ray 10/12/17 1014 Signed Impressions: CONCLUSION: No acute cardiopulmonary disease Thoracic Spine MRI 10/12/17 0000 Signed Impressions: CONCLUSION: 1. At T7-8 there is a small central disc protrusion without stenosis. 2. At T9-10 small left paracentral disc protrusion with minimal impression on the left hemicord. 3. At [id number] there is some osteophytic ridging with mild encroachment on th e thecal sac. 4. No cord signal abnormality. Normal alignment. No acute fracture or spondylo listhesis. Cervical Spine MRI 10/12/17 0000 Signed Impressions: CONCLUSION: 1. At C3-4 broad-based disc protrusion and extruded disc material results in m oderate AP canal stenosis on the left and mild compression on the left hemicord . 2. At C2-3 broad-based disc protrusion effaces the anterior thecal sac without cord compression. 3. At C5-6 small left paracentral disc protrusion effaces the anterior thecal sac without cord impingement. 4. Normal alignment. No definite cord signal abnormality. Objective Remarks GENERAL: This is an obese, well-developed patient, in no apparent distress. SKIN: No rashes, ecchymoses or lesions. Cool and dry. CARDIOVASCULAR: Regular rate and rhythm without murmurs, gallops, or rubs. RESPIRATORY: Clear to auscultation. Breath sounds equal bilaterally. No wheezes , rales, or rhonchi. GASTROINTESTINAL: Abdomen soft, non-tender, nondistended. No guarding. MUSCULOSKELETAL: Extremities without clubbing, cyanosis, or edema. No joint tenderness, effusion, or edema noted. No calf tenderness. Negative Homans sign bilaterally. NEUROLOGICAL: Awake and alert. Cranial nerves II through XII intact. Improving weakness of the right lower extremity. Patient able to ambulate with a walker. Intact sensation. Normal speech. Procedures none A/P Problem List: (1) Exacerbation of multiple sclerosis ICD Code: G35 - Multiple sclerosis Status: Acute Assessment and Plan This is a 42-year-old female who presents to the emergency department complaining of 2 day history of increasing pain and weakness of the right lower extremity. She has history of multiple sclerosis diagnosed in 2000 and has been hospitalized for similar symptoms in the left lower extremity back in 2017. She has been noncompliant with medical therapy and has not followed up with neurology. MS exacerbation. Improving per neurology, ct methylprednisolone 1000 milligrams IV daily for 3 days may need to extend to a total of 5 days if no improvement and follow-up MRI of the brain and lumbar spine. Thoracic spine MRI , small disk protrusions at T7-T8, T9-T10, T11-T12, with no stenosis, no cord signal abnormality is identified. Cervical spine MRI , C3-C4, there is stenosis with mild cord compression on the left. She does have a disc osteophyte complex at C3-C4, which does appear to encroach upon the anterior surface of the cord on the left side. However, there does appear to be a generous spinal canal with CSF around the cord. No cord signal abnormality identified. Recommended long-term immunomodulators in the future. Pain management with Lortab and IV morphine counselled regarding narcotics. Consult physical therapy Acute bronchitis. Patient received IV Rocephin and Zithromax, nebulizations and IV steroids. Continue Zithromax p.o., nebulizations and steroids. Tobacco cessation Hyperglycemia. Patient denies history of diabetes. Will monitor multiple medical conditions of obesity, hypertension, palpitations and GERD. Monitor BP. Weight reduction. Patient does not take any medicine DVT prophylaxis with subcu heparin, SCD and early ambulation RN to verify home med Discharge Planning Discharge per neurology. Will need home health care Armando Brar MD Oct 13, 2017 07:16
[2017-10-13] MEDS: DOCUSATE SODIUM 50 MG/SENNA 8.6 MG TAB PO SCH ×2 (08:31→20:24)
[2017-10-13] MEDS: AZITHROMYCIN 250 MG TAB PO SCH (08:31)
[2017-10-13] MEDS: HEPARIN SODIUM - SQ 10,000 UNITS/ML VIAL SQ SCH ×2 (08:32→20:25)
[2017-10-13] MEDS: SODIUM CHLORIDE 0.9% FLUSH 10 ML FLUSH IV FLUSH SCH ×2 (08:32→20:25)
[2017-10-13] MEDS: RESP: ALBUTEROL 2.5 MG/IPRATROPIUM 0.5 MG NEB (SCH) NEB ×4 (09:12→19:31)
[2017-10-13] MEDS: ACETAMINOPHEN/HYDROcodone 325 MG/7.5 MG TAB PO PRN ×2 (11:15→20:25)
[2017-10-13] MEDS ORDERED: LORazepam 2 MG/ML VIAL IV PUSH ONE (14:30)
[2017-10-13] MEDS: methylPREDNISolone SO SUCC INJ 1,000 MG in DEXTROSE 5% IN WATER 100ML INJ 100 ML IV SCH ×2 (15:12)
[2017-10-13] MEDS ORDERED: GADODIAMIDE PF 287 MG/ML 20 ML VIAL (for RAD MRI) IV PUSH ONE (17:25)
--- NOTE | 2017-10-13 17:59 | RADRPT ---
EXAM DATE: 10/13/2017 5:46 PM EDT AGE/SEX: 42 years / Female INDICATIONS: Inability to ambulate. Right lower extremity pain and weakness CLINICAL DATA: This is the patient's initial encounter. Patient reports that signs and symptoms have been present for 1 day and indicates a pain score of 4/10. MEDICAL/SURGICAL HISTORY: Multiple sclerosis. Cholecystectomy. Tonsillectomy. COMPARISON: [facility] – [place], MRI BRAIN W & W/O CONTRAST, 12/03/2015. . TECHNIQUE: Multiplanar, multisequence examination of the brain was performed without and with 20 ml O mniscan (gadodiamide) contrast as a single exam dose. FINDINGS: Cerebrum: Ventricles are normal. No midline shift, mass lesion, hemorrhage or acute infarction. No extraaxial fluid collections are seen. The pituitary gland and suprasellar cistern are normal in con figuration. White Matter: There is moderate periventricular white matter signal change bilaterally. A new area o f white matter signal changes present in the right centrum semiovale measuring 1.4 cm and is associat ed with increased diffusion signal but no decreased ADC signal. This area also demonstrates no abnorm al enhancement. Posterior Fossa: The cerebellum and brainstem demonstrate no acute abnormality. The 4th ventricle is midline. The cerebellopontine angle is within normal limits. The cerebellar tonsils are normal in p osition. Diffusion Imaging: No areas of restricted diffusion are seen. Extracranial: There is mucoperiosteal thickening within the left maxillary antrum. CONCLUSION: 1. There is periventricular white matter signal change with the majority similar to the a prior exam ination characteristic of areas of demyelinization related to the history of multiple sclerosis. Ther e is a new focal area of white matter signal change in the right centrum semiovale. It is associated with mild increased diffusion signal but no restricted diffusion or abnormal enhancement. This could represent an area of recent demyelinization. 2. Otherwise, no acute finding is identified. Electronically signed by: Pascual Hoover MD 10/13/2017 5:58 PM EDT
--- NOTE | 2017-10-13 23:14 | RADRPT ---
EXAM DATE: 10/13/2017 5:48 PM EDT AGE/SEX: 42 years / Female INDICATIONS: Multiple sclerosis. Right sided weakness. CLINICAL DATA: This is the patient's initial encounter. Patient reports that signs and symptoms have been present for 2 days and indicates a pain score of 4/10. MEDICAL/SURGICAL HISTORY: Multiple sclerosis. Cholecystectomy. Tonsillectomy. COMPARISON: No prior exams available for comparison. TECHNIQUE: Multiplanar, multisequence MRI of the lumbar spine was performed without contrast. Patie nt was scanned in a sitting position; neutral, flexion, and extension scans were performed in the sa gittal plane. FINDINGS: Vertebra: Homogeneous signal. Normal alignment. Conus: Normal level and configuration. T12-L1: The thecal sac has a normal diameter. No evidence of disc bulge or protrusion. The neural foramina are patent bilaterally. L1-L2: The thecal sac has a normal diameter. No evidence of disc bulge or protrusion. The neural foramina are patent bilaterally. L2-L3: The thecal sac has a normal diameter. No evidence of disc bulge or protrusion. The neural foramina are patent bilaterally. L3-L4: The thecal sac has a normal diameter. No evidence of disc bulge or protrusion. The neural foramina are patent bilaterally. There is mild facet hypertrophy. L4-L5: There is minimal diffuse disc bulge straightening the anterior thecal sac margin. There is m oderate facet and ligamentum flavum hypertrophy. Thecal sac narrowing appears out of portion to the d isc bulge and facet hypertrophy. There is moderate narrowing of thecal sac with a small amount CSF se en. The thecal sac narrowing appears out of portion to the disc bulge and facet hypertrophy. This may be partially secondary to short pedicles predisposing the patient to stenosis. The neural foramina a re patent bilaterally. L5-S1: There is minimal bulging without significant impression on the thecal sac. There is mild fac et hypertrophy. There continues to be CSF around the nerve roots. The neural foramina are patent lucia aterally. CONCLUSION: 1. Moderate stenosis at the L4-L5 level likely secondary to short pedicles. There is minimal disc bu lge and moderate facet hypertrophy. 2. Facet hypertrophy at the L3-L4-L5-S1 levels being moderate at the L4-L5 level. Electronically signed by: Pascual Martin MD 10/13/2017 11:12 PM EDT
[2017-10-14] VITALS (9 sets, daily range): BP systolic 132–172; BP diastolic 66–101; PULSE 59–84; RESP 17–18; TEMP 97.8–98.1; O2SAT 96–99
[2017-10-14] MEDS: ACETAMINOPHEN/HYDROcodone 325 MG/7.5 MG TAB PO PRN ×4 (04:04→17:17)
[2017-10-14] MEDS: RESP: ALBUTEROL 2.5 MG/IPRATROPIUM 0.5 MG NEB (SCH) NEB ×3 (08:12→15:31)
[2017-10-14] MEDS: SODIUM CHLORIDE 0.9% FLUSH 10 ML FLUSH IV FLUSH SCH (08:41)
[2017-10-14] MEDS: HEPARIN SODIUM - SQ 10,000 UNITS/ML VIAL SQ SCH (08:42)
[2017-10-14] MEDS: DOCUSATE SODIUM 50 MG/SENNA 8.6 MG TAB PO SCH (08:42)
[2017-10-14] MEDS: AZITHROMYCIN 250 MG TAB PO SCH (08:42)
--- NOTE | 2017-10-14 09:26 | HHI.PR ---
Subjective Remarks Follow-up MS. improving right lower extremity weakness able to ambulate without use a walker. Also improving pain involving the right hip Objective Vitals Vital Signs Date Time Temp Pulse Resp B/P (MAP) Pulse Ox O2 Delivery O2 Flow Rate FiO2 10/14/17 08:12 98 21 10/14/17 08:07 97.8 79 17 149/70 (96) 99 10/14/17 04:07 98.0 66 18 132/66 (88) 99 10/14/17 04:00 84 10/14/17 04:00 Room Air 10/14/17 00:09 98.1 81 17 172/101 (124) 97 10/14/17 00:00 81 10/14/17 00:00 Room Air 10/13/17 20:08 99.4 89 17 143/97 (112) 98 10/13/17 20:00 Room Air 10/13/17 20:00 88 10/13/17 19:31 95 21 10/13/17 18:59 Room Air 2.00 21 10/13/17 16:07 98.2 87 17 125/69 (87) 100 10/13/17 12:07 97.7 83 17 137/81 (99) 98 I/O 10/13/17 10/13/17 10/13/17 10/14/17 10/14/17 10/14/17 06:59 14:59 22:59 06:59 14:59 22:59 Intake Total 240 ml 1080 ml 240 ml Output Total 0 ml Balance 240 ml 1080 ml 240 ml Intake Oral 240 ml 1080 ml 240 ml Output Stool Total 0 ml # Voids 3 5 3 # Bowel Movements 0 0 Result Diagram: 10/12/17 1033 10/12/17 1033 Imaging Last Impressions Lumbar Spine MRI 10/13/17 0000 Signed Impressions: CONCLUSION: 1. Moderate stenosis at the L4-L5 level likely secondary to short pedicles. Th ere is minimal disc bulge and moderate facet hypertrophy. 2. Facet hypertrophy at the L3-L4-L5-S1 levels being moderate at the L4-L5 lev el. Brain MRI 10/13/17 0000 Signed Impressions: CONCLUSION: 1. There is periventricular white matter signal change with the majority simil ar to the a prior examination characteristic of areas of demyelinization relate d to the history of multiple sclerosis. There is a new focal area of white ruben er signal change in the right centrum semiovale. It is associated with mild inc reased diffusion signal but no restricted diffusion or abnormal enhancement. Th is could represent an area of recent demyelinization. 2. Otherwise, no acute finding is identified. Chest X-Ray 10/12/17 1014 Signed Impressions: CONCLUSION: No acute cardiopulmonary disease Thoracic Spine MRI 10/12/17 0000 Signed Impressions: CONCLUSION: 1. At T7-8 there is a small central disc protrusion without stenosis. 2. At T9-10 small left paracentral disc protrusion with minimal impression on the left hemicord. 3. At [id number] there is some osteophytic ridging with mild encroachment on th e thecal sac. 4. No cord signal abnormality. Normal alignment. No acute fracture or spondylo listhesis. Cervical Spine MRI 10/12/17 0000 Signed Impressions: CONCLUSION: 1. At C3-4 broad-based disc protrusion and extruded disc material results in m oderate AP canal stenosis on the left and mild compression on the left hemicord . 2. At C2-3 broad-based disc protrusion effaces the anterior thecal sac without cord compression. 3. At C5-6 small left paracentral disc protrusion effaces the anterior thecal sac without cord impingement. 4. Normal alignment. No definite cord signal abnormality. Objective Remarks GENERAL: This is an obese, well-developed patient, in no apparent distress. SKIN: No rashes, ecchymoses or lesions. Cool and dry. CARDIOVASCULAR: Regular rate and rhythm without murmurs, gallops, or rubs. RESPIRATORY: Clear to auscultation. Breath sounds equal bilaterally. No wheezes , rales, or rhonchi. GASTROINTESTINAL: Abdomen soft, non-tender, nondistended. No guarding. MUSCULOSKELETAL: Extremities without clubbing, cyanosis, or edema. No joint tenderness, effusion, or edema noted. No calf tenderness. Negative Homans sign bilaterally. NEUROLOGICAL: Awake and alert. Cranial nerves II through XII intact. Improving weakness of the right lower extremity. Patient able to ambulate with a walker. Intact sensation. Normal speech. Gait with the normal limits Procedures none A/P Problem List: (1) Exacerbation of multiple sclerosis ICD Code: G35 - Multiple sclerosis Status: Acute Assessment and Plan This is a 42-year-old female who presents to the emergency department complaining of 2 day history of increasing pain and weakness of the right lower extremity. She has history of multiple sclerosis diagnosed in 2000 and has been hospitalized for similar symptoms in the left lower extremity back in 2017. She has been noncompliant with medical therapy and has not followed up with neurology. MS exacerbation. Improving per neurology, ct methylprednisolone 1000 milligrams IV daily for 3 days may need to extend to a total of 5 days if no improvement. Brain MRI shows new focal area of white matter signal change in the right centrum semiovale. Cervical spine MRI, C3-C4, there is stenosis with mild cord compression on the left. She does have a disc osteophyte complex at C3-C4, which does appear to encroach upon the anterior surface of the cord on the left side. However, there does appear to be a generous spinal canal with CSF around the cord. No cord signal abnormality identified. Thoracic spine MRI, small disk protrusions at T7-T8, T9-T10, T11-T12, with no stenosis, no cord signal abnormality is identified. Moderate L4-L5 stenosis. Recommended long-term immunomodulators in the future. Pain management with Lortab and IV morphine counselled regarding narcotics. Consulted physical therapy Acute bronchitis. Patient received IV Rocephin and Zithromax, nebulizations and IV steroids. Continue Zithromax p.o., nebulizations and steroids. Tobacco cessation Hyperglycemia. Patient denies history of diabetes. Will monitor multiple medical conditions of obesity, hypertension, palpitations and GERD. Monitor BP. Weight reduction. Patient does not take any medicine DVT prophylaxis with subcu heparin, SCD and early ambulation RN to verify home med Discharge Planning Discharge per neurology. Will need home health care Armando Brar MD Oct 14, 2017 09:26
[2017-10-14] MEDS: methylPREDNISolone SO SUCC INJ 1,000 MG in DEXTROSE 5% IN WATER 100ML INJ 100 ML IV SCH ×2 (13:09)
[2017-10-14] MEDS ORDERED: GABA100C4 PO (16:43)
[2017-10-14] MEDS ORDERED: OMEP20TA93 PO (16:43)
[2017-10-14] MEDS ORDERED: IBUP-232 PO (16:43)
[2017-10-14] MEDS ORDERED: VENTAER INH (16:43)
[2017-10-14] MEDS ORDERED: AZIT250T3 PO (16:43)
--- NOTE | 2017-10-14 16:43 | HHI.DCPOC ---
Discharge Care Plan Diagnosis: (1) Multiple sclerosis Your Health Problems Are: Difficulty with ADL Exercise Tolerance Goals to Promote Your Health * To prevent worsening of your condition and complications * To maintain your health at the optimal level Directions to Meet Your Goals Take your medications as prescribed Follow your dietary instruction Follow activity as directed Keep your appointments as scheduled Take your immunizations and boosters as scheduled If your symptoms worsen call your PCP, if no PCP go to Urgent Care Center or Emergency Room Smoking is Dangerous to Your Health. Avoid second hand smoke Call the 24-hour hour crisis hotline for domestic abuse at Armando Brar MD Oct 14, 2017 16:43
--- NOTE | 2017-10-14 16:44 | HHI.FF ---
Face to Face Verification Diagnosis: (1) Multiple sclerosis Physical Therapy Order: Evaluate and Treat, Improve ambulation, Strength and gait training I have seen patient Goldie Bonilla on 10/14/17. My clinical findings support the need for the requested home health care services because: Deconditioned w/ increased weakness I certify that my clinical findings support that this patient is homebound because: Unsafe to leave home unassisted Armando Brar MD Oct 14, 2017 16:44
--- NOTE | 2017-10-14 16:47 | HHI.DS ---
Discharge Summary Admission Date Oct 12, 2017 at 13:31 Discharge Date: Oct 14, 2017 Admitting Diagnosis MS Flair/Right Leg Pain and Weakness/Bronchitis Wheezing (1) Exacerbation of multiple sclerosis ICD Code: G35 - Multiple sclerosis Diagnosis: Principal Status: Acute Procedures none Brief History - From Admission This is a 42-year-old female who presents to the emergency department complaining of 2 day history of increasing pain and weakness of the right lower extremity. Denies trauma. She reports of severe sharp pulsating right hip pain without radiation. No numbness or incontinence, visual or swallowing difficulties. She has history of multiple sclerosis diagnosed in 1999 and has been hospitalized for similar symptoms in the left lower extremity back in 2017. She has been noncompliant with medical therapy and has not followed up with neurology. She also reports of a one-week history of productive cough of brown phlegm, wheezing and shortness of breath. She has history of recurrent bronchitis and an ex-smoker. No fever or chills. All other systems reviewed negative. Per neurology, recommended methylprednisolone thousand milligrams IV daily for 3 days and obtain MRI of the cervical, thoracic and lumbar spine. CBC/BMP: 10/12/17 1033 10/12/17 1033 Significant Findings Laboratory Tests Test 10/12/17 10:33 10/12/17 13:45 White Blood Count 12.8 TH/MM3 (4.0-11.0) Monocytes (%) (Auto) 8.1 % (0.0-8.0) Neutrophils # (Auto) 8.9 TH/MM3 (1.8-7.7) Monocytes # (Auto) 1.0 TH/MM3 (0-0.9) Blood Urea Nitrogen 6 MG/DL (7-18) Random Glucose 110 MG/DL (74-106) Aspartate Amino Transf (AST/SGOT) 13 U/L (15-37) Chloride Level 108 MEQ/L (98-107) Urine Protein 30 mg/dL (NEG-TRACE) Urine Occult Blood SMALL (NEG) Urine Mucus FEW /lpf (OCC) Imaging Last Impressions Lumbar Spine MRI 10/13/17 0000 Signed Impressions: CONCLUSION: 1. Moderate stenosis at the L4-L5 level likely secondary to short pedicles. Th ere is minimal disc bulge and moderate facet hypertrophy. 2. Facet hypertrophy at the L3-L4-L5-S1 levels being moderate at the L4-L5 lev el. Brain MRI 10/13/17 0000 Signed Impressions: CONCLUSION: 1. There is periventricular white matter signal change with the majority simil ar to the a prior examination characteristic of areas of demyelinization relate d to the history of multiple sclerosis. There is a new focal area of white ruben er signal change in the right centrum semiovale. It is associated with mild inc reased diffusion signal but no restricted diffusion or abnormal enhancement. Th is could represent an area of recent demyelinization. 2. Otherwise, no acute finding is identified. Chest X-Ray 10/12/17 1014 Signed Impressions: CONCLUSION: No acute cardiopulmonary disease Thoracic Spine MRI 10/12/17 0000 Signed Impressions: CONCLUSION: 1. At T7-8 there is a small central disc protrusion without stenosis. 2. At T9-10 small left paracentral disc protrusion with minimal impression on the left hemicord. 3. At H14-10-22 there is some osteophytic ridging with mild encroachment on th e thecal sac. 4. No cord signal abnormality. Normal alignment. No acute fracture or spondylo listhesis. Cervical Spine MRI 10/12/17 0000 Signed Impressions: CONCLUSION: 1. At C3-4 broad-based disc protrusion and extruded disc material results in m oderate AP canal stenosis on the left and mild compression on the left hemicord . 2. At C2-3 broad-based disc protrusion effaces the anterior thecal sac without cord compression. 3. At C5-6 small left paracentral disc protrusion effaces the anterior thecal sac without cord impingement. 4. Normal alignment. No definite cord signal abnormality. PE at Discharge GENERAL: This is an obese, well-developed patient, in no apparent distress. SKIN: No rashes, ecchymoses or lesions. Cool and dry. CARDIOVASCULAR: Regular rate and rhythm without murmurs, gallops, or rubs. RESPIRATORY: Clear to auscultation. Breath sounds equal bilaterally. No wheezes , rales, or rhonchi. GASTROINTESTINAL: Abdomen soft, non-tender, nondistended. No guarding. MUSCULOSKELETAL: Extremities without clubbing, cyanosis, or edema. No joint tenderness, effusion, or edema noted. No calf tenderness. Negative Homans sign bilaterally. NEUROLOGICAL: Awake and alert. Cranial nerves II through XII intact. Improving weakness of the right lower extremity. Patient able to ambulate with a walker. Intact sensation. Normal speech. Gait with the normal limits Hospital Course This is a 42-year-old female who presents to the emergency department complaining of 2 day history of increasing pain and weakness of the right lower extremity. She has history of multiple sclerosis diagnosed in 1999 and has been hospitalized for similar symptoms in the left lower extremity back in 2017. She has been noncompliant with medical therapy and has not followed up with neurology. MS exacerbation. Improved s/p methylprednisolone 1000 milligrams IV daily for 3 days. Brain MRI shows new focal area of white matter signal change in the right centrum semiovale. Cervical spine MRI, C3-C4, there is stenosis with mild cord compression on the left. She does have a disc osteophyte complex at C3-C4, which does appear to encroach upon the anterior surface of the cord on the left side. However, there does appear to be a generous spinal canal with CSF around the cord. No cord signal abnormality identified. Thoracic spine MRI, small disk protrusions at T7-T8, T9-T10, T11-T12, with no stenosis, no cord signal abnormality is identified. Moderate L4-L5 stenosis. Recommended long-term immunomodulators in the future. Pain management with Lortab and IV morphine counselled regarding narcotics. Consulted physical therapy f/u neurology in 2 weeks Acute bronchitis. Patient received IV Rocephin and Zithromax, nebulizations and IV steroids. Continue Zithromax p.o., nebulizations and steroids. Tobacco cessation Hyperglycemia. Patient denies history of diabetes. Will monitor multiple medical conditions of obesity, hypertension, palpitations and GERD. Monitor BP. Weight reduction. Patient does not take any medicine DVT prophylaxis with subcu heparin, SCD and early ambulation Pt Condition on Discharge: Stable Discharge Disposition: Disch w/ Home Health Serv Discharge Time: > 30 minutes Discharge Instructions DIET: Follow Instructions for: Heart Healthy Diet Activities you can perform: Regular-No Restrictions Activities to Avoid: Driving Follow up Referrals: Neurology - 2 Weeks PCP Follow-up - 1 Week New Medications: Azithromycin (Azithromycin) 250 Mg Tab 500 MG PO DAILY for Infection, #1 TAB Continued Medications: Albuterol 18 GM Inh (Ventolin Hfa 18 GM Inh) 90 Mcg/Act Aer 1 PUFF INH Q4H PRN for SHORTNESS OF BREATH, #1 INHALER 0 Refills (This prescription has been renewed) Gabapentin (Gabapentin) 100 Mg Cap 100 MG PO TID for Pain Management, #90 CAP 0 Refills (This prescription has been renewed) Ibuprofen (Ibuprofen) 600 Mg Tab 600 MG PO Q6H PRN for Pain/Inflammation, #40 TAB 0 Refills (This prescription has been renewed) Omeprazole (Omeprazole) 20 Mg Tab 20 MG PO DAILY for Manage Heartburn, #30 TAB 0 Refills (This prescription has been renewed) Armando Brar MD Oct 14, 2017 16:47
== END 2017-10-14 17:28 | disposition home or self-care (01) | DRG 59 ==
LOC: NEPD 09:46 → NEDA 13:09 → INTOOBSV 13:09 → OBSVTOIN 13:31 → N04A 15:39
PROVIDERS: ADMIT Internal Medicine; ATTEND Internal Medicine
DX: G35 Multiple sclerosis (principal); Z68.43 Body mass index [BMI] 50.0-59.9, adult; I10 Essential (primary) hypertension; J20.9 Acute bronchitis, unspecified; Z91.19 Patient's noncompliance with other medical treatment and regimen; R73.9 Hyperglycemia, unspecified; E66.9 Obesity, unspecified; K21.9 Gastro-esophageal reflux disease without esophagitis; R00.2 Palpitations; F12.90 Cannabis use, unspecified, uncomplicated; Z87.891 Personal history of nicotine dependence
CPT/HCPCS: 70553; 71046; 72141; 72146; 72148; 80053; 81001; 85025; 85610; 85730; 94640; 94664; 96365; 96375; A9579; J0696; J1644; J2060; J2270; J2930

== ENCOUNTER 2017-12-21 20:12 | Inpatient (IN) ==
[2017-12-21] MEDS ORDERED: Morphine Inj 4 MG/ML Vial IV.PUSH ONE (20:25)
[2017-12-21 20:45] LABS: Baso % (Auto) 0.4 % (0.0-2.0); Eos # (Auto) 0.2 th/mm3 (0.0-0.4); Eos % (Auto) 1.5 % (0.0-4.0); Hematocrit 36.2 % (35.0-46.0); Hemoglobin 12.4 gm/dL (11.6-15.3); Lymph # (Auto) 3.3 th/mm3 (1.0-4.8); Lymph % (Auto) 31.2 % (9.0-44.0); Mean Corpuscular HGB Conc 34.3 % (32.0-36.0); Mean Corpuscular Hemoglobin 31.9 pg (27.0-34.0); Mean Platelet Volume 8.4 fL (7.0-11.0); Mono # (Auto) 0.9 th/mm3 (0.0-0.9); Mono % (Auto) 8.6 % (0.0-8.0); Neut # (Auto) 6.2 th/mm3 (1.8-7.7); Neut % (Auto) 58.3 % (16.0-70.0); Platelet Count 224 th/mm3 (150-450); Red Blood Count 3.89 mil/mm3 (4.00-5.30); Red Cell Distribution Width 13.4 % (11.6-17.2); White Blood Count 10.6 th/mm3 (4.0-11.0)
[2017-12-21 20:58] LABS: Activated Partial Thrombo Time 24.7 sec (24.3-30.1); D-Dimer 1.36 mg/L FEU (0.00-0.50); Prothrombin Time 9.8 sec (9.8-11.6)
[2017-12-21 21:00] LABS: Albumin 3.4 g/dL (3.4-5.0); Anion Gap 8 meq/L (5-15); Aspartate Aminotransferase 16 U/L (15-37); Blood Urea Nitrogen 8 mg/dL (7-18); Calcium 8.5 mg/dL (8.5-10.1); Carbon Dioxide 25.2 meq/L (21.0-32.0); Chloride 109 meq/L (98-107); Glomerular Filtration Rate Greater Than 89 mL/min (>89); Glucose,Random 99 mg/dL (74-106); Lipase 132 U/L (73-393); Potassium 3.4 meq/L (3.5-5.1); Sodium 142 meq/L (136-145)
[2017-12-21 21:01] LABS: Alanine Aminotransferase 18 U/L (10-53)
[2017-12-21 21:05] LABS: Alkaline Phosphatase 52 U/L (45-117); Total Protein 7.4 g/dL (6.4-8.2); Troponin I 0.18 ng/mL (0.02-0.05)
[2017-12-21 21:14] LABS: Creatine Kinase 93 U/L (26-192)
--- NOTE | 2017-12-21 21:22 | XR ---
EXAM DATE: 12/21/2017 9:10 PM EDT AGE/SEX: 42 years / Female INDICATIONS: Chest pain. CLINICAL DATA: This is the patient's initial encounter. Patient reports that signs and symptoms have been present for 1 day and indicates a pain score of 5/10. MEDICAL/SURGICAL HISTORY: . : Multiple sclerosis . Cholecystectomy. Tonsillectomy. COMPARISON: [facility] – [place], CHEST PA & LAT, 10/12/2017. . FINDINGS: The lungs are clear without infiltrate, nodule, or mass. There is no appreciable pleural effusion for technique. Heart and mediastinum are unremarkable. CONCLUSION: No acute cardiopulmonary disease. Electronically signed by: Yovani Perez MD 12/21/2017 9:21 PM EDT
[2017-12-21] MEDS ORDERED: Heparin 10,000 UNITS/10 ML Vial (for IV use) IV.PUSH STA (21:37)
[2017-12-21] MEDS: Heparin Drip 25,000 UNIT/250 ML BAG IV.CONT PRN (21:53)
--- NOTE | 2017-12-21 21:58 | CT ---
EXAM DATE: 12/21/2017 9:54 PM EDT AGE/SEX: 42 years / Female INDICATIONS: Chest pain with shortness of breath past 2 days. CLINICAL DATA: This is the patient's initial encounter. Patient reports that signs and symptoms have been present for 2 days and indicates a pain score of 5/10. MEDICAL/SURGICAL HISTORY: Multiple sclerosis. Cholecystectomy. RADIATION DOSE: 27.43 CTDI (mGy) COMPARISON: [facility], CHEST 1V SINGLE AP, 12/21/2017. . TECHNIQUE: Volumetric scanning was performed using a multi-row detector CT scanner during bolus infu hector of 75 ml Omnipaque 350 (iohexol) nonionic water-soluble contrast as a single exam dose. The jay a was post processed with a variety of visualization algorithms including full volume maximum intensi ty projection and sliding thin slab reformation. Using automated exposure control and adjustment of the mA and/or kV according to patient size, radiation dose was kept as low as reasonably achievable t o obtain optimal diagnostic quality images. DICOM format image data is available electronically for review and comparison. FINDINGS: Coronary artery calcifications are seen typically seen with coronary artery disease and clinical bushra elation and evaluation is suggested. Small almost 5 to 6 mm triangular-shaped density is present jocelyn cent to minor fissure in the right lung probably tiny area of scar could be followed. The bolus of co ntrast is suboptimal in evaluation for pulmonary embolus, however no definite PE is identified. CONCLUSION: 1. No definite PE. Electronically signed by: Yovani Perez MD 12/21/2017 9:57 PM EDT
--- NOTE | 2017-12-21 22:42 | ED ---
HPI General Chief Complaint: Chest Pain Stated Complaint: Evac/Chest Pain Time Seen by Provider: 12/21/17 20:15 Source: patient Mode of arrival: ambulatory Limitations: no limitations History of Present Illness HPI narrative: 42-year-old female that presents to the ED for evaluation of left -sided chest pain. Patient came here by EVAC for evaluation of this. Per patient symptoms started yesterday. Per patient she gets some shortness of breath with it. Per patient he gets worse with movement. She does have a history of asthma. She states that she has a history of hypertension and has been out of her lisinopril for some time. Per EVAC she was given nitroglycerin 3 and aspirin. Nitroglycerin seemed to help the pain. Per patient the pain feels like a pressure and radiates to the left side as well as to her head. She denies any back pain or trauma. She denies any urinary or bowel movement issues. No cough or runny nose. She does have a history of MS but denies this feeling like this may be an MS flare. Per patient usually gets weakness and not pain. She denies any history of heart disease on her cell but there is heart disease in the family. Complete Quality Measures for STEMI Alert Patients Related Data Home Medications Medication Instructions Recorded Confirmed albuterol sulfate [Proventil HFA] 2 puff INHALATION Q4-6H PRN 12/21/17 12/21/17 gabapentin [Neurontin] 300 PO TID 12/21/17 Allergies Allergy/AdvReac Type Severity Reaction Status Date / Time penicillin G Allergy Severe Rash, Verified 12/21/17 21:46 Generalized Review of Systems ROS: all other systems reviewed are negative [facility] Medical History Medical History Cholecystectomy planned (Acute) Multiple sclerosis (Acute) Surgical History Surgical History Hx of tonsillectomy (Acute) No history of previous surgery (Acute) Family History Family History Other Diabetes mellitus Social History Social History Substance History: No History of Abuse Second Hand Smoke Exposure: Yes Smoking Status: Former smoker Tobacco Type: Cigarettes (Marijuna) How Often Do You Have a Drink Containing Alcohol: Never Recent Travel in [facility] within the Last 8 Weeks: No Recent Out of Country Travel within the Last 8 Weeks: No Immunization History Tetanus Immunization: >5 Years Hx Influenza Vaccine This Season: No Exam Narrative Exam Narrative: GENERAL: Well appearing. SKIN: Focused skin assessment warm/dry. HEAD: Atraumatic. Normocephalic. EYES: Pupils equal and round. No scleral icterus. No injection or drainage. ENT: No nasal bleeding or discharge. Mucous membranes pink and moist. Tongue is midline. No uvula deviation. NECK: Trachea midline. No JVD. CARDIOVASCULAR: Regular rate and rhythm. No murmur appreciated. RESPIRATORY: No accessory muscle use. Clear to auscultation. Breath sounds equal bilaterally. GASTROINTESTINAL: Abdomen soft, non-tender, nondistended. Hepatic and splenic margins not palpable. MUSCULOSKELETAL: No obvious deformities. No clubbing. No cyanosis. No edema. Full ROM of the upper and lower extremities bilaterally. 2+ pulses. NEUROLOGICAL: Awake and alert. No obvious cranial nerve deficits. Motor grossly within normal limits. Normal speech. PSYCHIATRIC: Appropriate mood and affect; insight and judgment normal. Course Initial Documented Vital Signs Temperature 98.5 F 12/21/17 20:17 Pulse Rate 105 H 12/21/17 20:17 Blood Pressure 157/67 H 12/21/17 20:17 Pulse Oximetry 98 12/21/17 20:17 Last Documented Vital Signs Temperature 98.1 F 12/22/17 12:00 Pulse Rate 84 12/22/17 15:00 Respiratory Rate 18 12/22/17 12:00 Blood Pressure 135/82 12/22/17 12:00 Pulse Oximetry 100 12/22/17 12:00 Medical Decision Making LUCITA Attestation LUCITA supervised visit: Yes Attestation: I, Dr. Lizama, have reviewed the advance practice practitioner's documentation and am in agreement, met with the patient face to face, made the diagnosis, and the medical decision making was done by me. The patient was initially evaluated by michela Gonzalez pA. Please see their complete history and physical. *My assessment and Findings: The patient presents with a reported history of left-sided chest pain associated with shortness of breath. The patient has a history of high blood pressure, however she was taken off of her lisinopril as it seemed to improve. The patient was brought in by ambulance services after aspirin was administered along with 3 sublingual nitroglycerin. The patient's pain improved with administration of nitroglycerin. During the course of the patient's emergency department visit, the patient's history, examination, and differential diagnosis were reviewed with the patient. The patient was placed on a local company hazmat driver with oximetry and frequent blood pressure monitoring. The patient had IV access obtained and blood work sent for analysis. The patient was initially provided nitroglycerin 1 inch the chest wall. The patient's studies were reviewed and remarkable for an intermediate elevated troponin. Chest x-ray, CTA to rule out PE were unremarkable. The patient's results were discussed with the patient, including the plan of care. I explained that further testing and/ or monitoring is indicated based on the patient's history, examination, and/ or laboratory findings. Therefore, I recommended admission for additional evaluation. The patient expressed understanding and was agreeable with this plan. The patient was admitted to the hospital in stable condition and sent to a bed under the care of the [facility]. MDM Narrative Medical decision making narrative: 42-year-old female that presents to the ED for evaluation of left-sided chest pain. Labs and imaging were ordered. Concern for ACS versus PE. Labs and imaging were positive for d-dimer as well as troponin. CTA was ordered and was negative for PE. Patient will be started on heparin my attendings recommendations. Patient was put on Nitropaste. Likely this is an STEMI. Initial EKG did not show any sign of ST elevations no sign of ischemia. Otherwise blood work was negative. Patient was told of results and agrees with plan. Patient will be admitted to the medical team for evaluation of the ACS. Patient agrees with this. My attending Dr. Lizama was made aware of findings and agrees with plan. Patient was admitted to Dr. Anaya who agrees to admission. Medical Screen Exam Complete: Yes Emergency Medical Condition: Yes Differential Diagnosis Differential Diagnosis: PE versus ACS versus an STEMI versus STEMI versus chest pain Medical Records Medical records reviewed: Yes I reviewed the patient's medical records. Lab Data Lab results reviewed: Yes I reviewed the patient's lab results. Lab results narrative: Troponin elevated, CK negative. Result diagrams: 12/22/17 03:38 12/22/17 03:38 POC Results POC Urine Results Negative Lab Results 12/21/17 12/21/17 12/21/17 Range/Units 20:37 20:37 20:37 WBC 10.6 (4.0-11.0) th/mm3 RBC 3.89 L (4.00-5.30) mil/mm3 Hgb 12.4 (11.6-15.3) gm/dL Hct 36.2 (35.0-46.0) % MCV 93.0 (80.0-100.0) fL MCH 31.9 (27.0-34.0) pg MCHC 34.3 (32.0-36.0) % RDW 13.4 (11.6-17.2) % Plt Count 224 (150-450) th/mm3 MPV 8.4 (7.0-11.0) fL Neut % (Auto) 58.3 (16.0-70.0) % Lymph % (Auto) 31.2 (9.0-44.0) % [place]oca % (Auto) 8.6 H (0.0-8.0) % Eos % (Auto) 1.5 (0.0-4.0) % Baso % (Auto) 0.4 (0.0-2.0) % Neut # (Auto) 6.2 (1.8-7.7) th/mm3 Lymph # (Auto) 3.3 (1.0-4.8) th/mm3 [place] # (Auto) 0.9 (0.0-0.9) th/mm3 Eos # (Auto) 0.2 (0.0-0.4) th/mm3 Baso # (Auto) 0.0 (0.0-0.2) th/mm3 WBC Differential . Differential Comment Auto diff final PT 9.8 (9.8-11.6) sec INR 1.0 Ratio APTT 24.7 (24.3-30.1) sec D-Dimer Quant (PE/DVT) 1.36 H (0.00-0.50) mg/L FEU Sodium 142 (136-145) meq/L Potassium 3.4 L (3.5-5.1) meq/L Chloride 109 H (98-107) meq/L Carbon Dioxide 25.2 (21.0-32.0) meq/L Anion Gap 8 (5-15) meq/L BUN 8 (7-18) mg/dL Creatinine 0.78 (0.50-1.00) mg/dL Estimated GFR Greater than 89 (>89) mL/min Random Glucose 99 (74-106) mg/dL Calcium 8.5 (8.5-10.1) mg/dL Total Bilirubin 0.2 (0.2-1.0) mg/dL AST 16 (15-37) U/L ALT 18 (10-53) U/L Alkaline Phosphatase 52 (45-117) U/L Total Creatine Kinase 93 (26-192) U/L Troponin I 0.18 H (0.02-0.05) ng/mL B-Natriuretic Peptide (0-100) pg/mL Total Protein 7.4 (6.4-8.2) g/dL Albumin 3.4 (3.4-5.0) g/dL Lipase 132 (73-393) U/L 12/21/17 12/21/17 12/22/17 Range/Units 20:37 21:40 03:38 WBC (4.0-11.0) th/mm3 RBC (4.00-5.30) mil/mm3 Hgb (11.6-15.3) gm/dL Hct (35.0-46.0) % MCV (80.0-100.0) fL MCH (27.0-34.0) pg MCHC (32.0-36.0) % RDW (11.6-17.2) % Plt Count (150-450) th/mm3 MPV (7.0-11.0) fL Neut % (Auto) (16.0-70.0) % Lymph % (Auto) (9.0-44.0) % [place] % (Auto) (0.0-8.0) % Eos % (Auto) (0.0-4.0) % Baso % (Auto) (0.0-2.0) % Neut # (Auto) (1.8-7.7) th/mm3 Lymph # (Auto) (1.0-4.8) th/mm3 [place] # (Auto) (0.0-0.9) th/mm3 Eos # (Auto) (0.0-0.4) th/mm3 Baso # (Auto) (0.0-0.2) th/mm3 WBC Differential Differential Comment PT 9.9 (9.8-11.6) sec INR 1.0 Ratio APTT 23.8 L (24.3-30.1) sec D-Dimer Quant (PE/DVT) (0.00-0.50) mg/L FEU Sodium 143 (136-145) meq/L Potassium 4.0 (3.5-5.1) meq/L Chloride 109 H (98-107) meq/L Carbon Dioxide 25.9 (21.0-32.0) meq/L Anion Gap 8 (5-15) meq/L BUN 7 (7-18) mg/dL Creatinine 0.61 (0.50-1.00) mg/dL Estimated GFR Greater than 89 (>89) mL/min Random Glucose 106 (74-106) mg/dL Calcium 8.5 (8.5-10.1) mg/dL Total Bilirubin (0.2-1.0) mg/dL AST (15-37) U/L ALT (10-53) U/L Alkaline Phosphatase (45-117) U/L Total Creatine Kinase 77 (26-192) U/L Troponin I 0.30 H D (0.02-0.05) ng/mL B-Natriuretic Peptide 13 (0-100) pg/mL Total Protein (6.4-8.2) g/dL Albumin (3.4-5.0) g/dL Lipase (73-393) U/L 12/22/17 12/22/17 12/22/17 Range/Units 03:38 03:38 08:58 WBC 9.5 (4.0-11.0) th/mm3 RBC 3.46 L (4.00-5.30) mil/mm3 Hgb 11.1 L (11.6-15.3) gm/dL Hct 31.9 L (35.0-46.0) % MCV 92.1 (80.0-100.0) fL MCH 32.2 (27.0-34.0) pg MCHC 34.9 (32.0-36.0) % RDW 13.5 (11.6-17.2) % Plt Count 204 (150-450) th/mm3 MPV 8.5 (7.0-11.0) fL Neut % (Auto) 61.6 (16.0-70.0) % Lymph % (Auto) 28.8 (9.0-44.0) % Moca % (Auto) 7.8 (0.0-8.0) % Eos % (Auto) 1.5 (0.0-4.0) % Baso % (Auto) 0.3 (0.0-2.0) % Neut # (Auto) 5.9 (1.8-7.7) th/mm3 Lymph # (Auto) 2.7 (1.0-4.8) th/mm3 [place] # (Auto) 0.7 (0.0-0.9) th/mm3 Eos # (Auto) 0.1 (0.0-0.4) th/mm3 Baso # (Auto) 0.0 (0.0-0.2) th/mm3 WBC Differential . Differential Comment Auto diff final PT (9.8-11.6) sec INR Ratio APTT 32.4 H D (24.3-30.1) sec D-Dimer Quant (PE/DVT) (0.00-0.50) mg/L FEU Sodium (136-145) meq/L Potassium (3.5-5.1) meq/L Chloride (98-107) meq/L Carbon Dioxide (21.0-32.0) meq/L Anion Gap (5-15) meq/L BUN (7-18) mg/dL Creatinine (0.50-1.00) mg/dL Estimated GFR (>89) mL/min Random Glucose (74-106) mg/dL Calcium (8.5-10.1) mg/dL Total Bilirubin (0.2-1.0) mg/dL AST (15-37) U/L ALT (10-53) U/L Alkaline Phosphatase (45-117) U/L Total Creatine Kinase 81 (26-192) U/L Troponin I 0.23 H (0.02-0.05) ng/mL B-Natriuretic Peptide (0-100) pg/mL Total Protein (6.4-8.2) g/dL Albumin (3.4-5.0) g/dL Lipase (73-393) U/L 12/22/17 Range/Units 11:27 WBC (4.0-11.0) th/mm3 RBC (4.00-5.30) mil/mm3 Hgb (11.6-15.3) gm/dL Hct (35.0-46.0) % MCV (80.0-100.0) fL MCH (27.0-34.0) pg MCHC (32.0-36.0) % RDW (11.6-17.2) % Plt Count (150-450) th/mm3 MPV (7.0-11.0) fL Neut % (Auto) (16.0-70.0) % Lymph % (Auto) (9.0-44.0) % [place]oca % (Auto) (0.0-8.0) % Eos % (Auto) (0.0-4.0) % Baso % (Auto) (0.0-2.0) % Neut # (Auto) (1.8-7.7) th/mm3 Lymph # (Auto) (1.0-4.8) th/mm3 [place]oca # (Auto) (0.0-0.9) th/mm3 Eos # (Auto) (0.0-0.4) th/mm3 Baso # (Auto) (0.0-0.2) th/mm3 WBC Differential Differential Comment PT (9.8-11.6) sec INR Ratio APTT 29.7 (24.3-30.1) sec D-Dimer Quant (PE/DVT) (0.00-0.50) mg/L FEU Sodium (136-145) meq/L Potassium (3.5-5.1) meq/L Chloride (98-107) meq/L Carbon Dioxide (21.0-32.0) meq/L Anion Gap (5-15) meq/L BUN (7-18) mg/dL Creatinine (0.50-1.00) mg/dL Estimated GFR (>89) mL/min Random Glucose (74-106) mg/dL Calcium (8.5-10.1) mg/dL Total Bilirubin (0.2-1.0) mg/dL AST (15-37) U/L ALT (10-53) U/L Alkaline Phosphatase (45-117) U/L Total Creatine Kinase (26-192) U/L Troponin I (0.02-0.05) ng/mL B-Natriuretic Peptide (0-100) pg/mL Total Protein (6.4-8.2) g/dL Albumin (3.4-5.0) g/dL Lipase (73-393) U/L Imaging Data Attestation: I personally reviewed and interpreted this imaging study as follows : Radiologist's impression: Chest X-Ray 12/21/17 20:25 CONCLUSION: No acute cardiopulmonary disease. Chest CTA 12/21/17 21:02 CONCLUSION: 1. No definite PE. ECG Data Attestation: I personally reviewed and interpreted this ECG as follows: Interpretation: EKG shows no signs of acute disease or ischemia. read by me and attending. No ST elevations noted. Discharge Plan Discharge Disposition Patient Disposition: 30 Still Patient Discharge Details Diagnosis: Acute non-ST elevation myocardial infarction (NSTEMI) Physicians Team ED Provider: Roxana Lizama ED Midlevel Provider: Carlos Oconnor Primary Care Provider: Juan Pablo Renteria Attending Provider: Ankit Ragland Other Providers: [facility],Insurance ; Addison Kline Status ED Status: Left Department Discharge Information Discharge Date/Time: 12/22/17 00:49
[2017-12-21 22:59] LABS: Activated Partial Thrombo Time 23.8 sec (24.3-30.1); Prothrombin Time 9.9 sec (9.8-11.6)
--- NOTE | 2017-12-21 23:15 | P.HP ---
History of Present Illness Service: [facility] Primary Care Physician: Juan Pablo Renteria History of Present Illness: 42-year-old female with a past medical history significant for multiple sclerosis and GERD presents to the emergency department for evaluation of chest pain. The patient reports that her chest pain started yesterday afternoon while she was relaxing outside. She denies any associated activity. She states that the pain alternates between a pressure and a stabbing sensation. She states it worsened yesterday evening and started to radiate down her left hand to her fingers and up the left side of her neck to her jaw. The patient endorses associated shortness of breath and intermittent diaphoresis. She denies any nausea/vomiting/abdominal pain. No fever or chills. No headache or weakness. Inpatient Certification: I certify that the inpatient services were ordered in accordance with Medicare regulations governing the order. This includes certification that hospital inpatient services are reasonable and necessary and in the case of services not specified as inpatient-only under 42 CFR 419.22(n), that they are appropriately provided as inpatient services in accordance to with the 2-midnight benchmark under 43 CFR 412.3(e) Estimated Total Length of Stay (Days): 2 Plans for Post Hospital Care: Not yet determined Review of Systems All other systems reviewed negative except as stated in HPI [facility] - History History Provided By: Patient - Medical History Medical History: Medical History (Last Reviewed 12/21/17 @ 22:37 by KERLINE Steele) Cholecystectomy planned (Acute) Multiple sclerosis (Acute) - Surgical History Surgical History: Surgical History (Last Updated 12/21/17 @ 23:11 by Chioma Anaya MD) No history of previous surgery (Acute) Hx of tonsillectomy - Family History Family History: Family History (Last Updated 12/21/17 @ 23:11 by Chioma Anaya MD) Other Diabetes mellitus - Tobacco History Second Hand Smoke Exposure: No Smoking Status: Former smoker - Alcohol History How Often Do You Have a Drink Containing Alcohol: Monthly or less - Travel History Recent Travel in the [place] Within the Last 8 Weeks: No Recent Travel Out of the Country Within the Last 8 Weeks: No - Immunization History Tetanus Immunization: >5 Years Hx Influenza Vaccine This Season: No Medications and Allergies Active Medications: Active Medications Heparin Sodium/Dextrose (Heparin/D5w 25,000 U/250 Ml) 25,000 unit in 250 mls @ 0 mls/hr IV.CONT TITRATE PRN; Protocol PRN Reason: Per Protocol Last Admin: 12/21/17 21:53 Dose: 1,000 units/hr, 10 mls/hr Lorazepam (Ativan Inj) 1 mg IV.PUSH ONCE ONE Stop: 12/21/17 23:08 Morphine Sulfate (Morphine Inj) 2 mg IV.PUSH Q30M PRN PRN Reason: CHEST PAIN Nitroglycerin (Nitro-Bid 2% Oint) 1 inch TOPICAL Q6HR RITA Ondansetron HCl (Zofran Inj) 4 mg IV.PUSH Q6H PRN PRN Reason: NAUSEA OR VOMITING Sodium Chloride (Ns Inj) 2 ml IV.FLUSH BID RITA Sodium Chloride (Ns Inj) 2 ml IV.FLUSH UNSCH PRN PRN Reason: FLUSH AFTER USING IV ACCESS Allergies Allergy/AdvReac Type Severity Reaction Status Date / Time penicillin G Allergy Severe Rash, Verified 12/21/17 21:46 Generalized Home Medications Medication Instructions Recorded Confirmed Type albuterol sulfate [Proventil HFA] 2 puff INHALATION Q4-6H PRN 12/21/17 12/21/17 History gabapentin [Neurontin] 300 PO TID 12/21/17 History Exam Vital signs: Vital Signs 12/21/17 20:17 12/21/17 20:53 Temperature 98.5 F Pulse Rate 105 H 92 H Blood Pressure 157/67 H Pulse Oximetry 98 100 Intake & Output 12/21/17 12/21/17 12/22/17 06:59 18:59 06:59 Weight 135 kg Narrative: Gen.: No acute distress Head: Normocephalic. Atraumatic. EENT: Pupils equal round and reactive to light. Nose without drainage. Airway intact. Throat without injection. Cardiovascular: Regular rate and rhythm. No murmurs, rubs or gallops. Respiratory: Lungs clear to auscultation bilaterally. No wheezes or rhonchi. Abdomen: Soft, nontender, nondistended. No peritoneal signs. Musculoskeletal: No gross deformities. No edema. Skin: No obvious rashes or erythema. Neuro: Sensory and motor grossly intact. Cranial nerves II through XII grossly intact. Results - Labs CBC & Chem 7: 12/21/17 20:37 12/21/17 20:37 Labs: Laboratory Results - last 24 hr 12/21/17 12/21/17 12/21/17 20:37 20:37 20:37 WBC 10.6 RBC 3.89 L Hgb 12.4 Hct 36.2 MCV 93.0 MCH 31.9 MCHC 34.3 RDW 13.4 Plt Count 224 MPV 8.4 Neut % (Auto) 58.3 Lymph % (Auto) 31.2 [place] % (Auto) 8.6 H Eos % (Auto) 1.5 Baso % (Auto) 0.4 Neut # (Auto) 6.2 Lymph # (Auto) 3.3 [place] # (Auto) 0.9 Eos # (Auto) 0.2 Baso # (Auto) 0.0 WBC Differential . Differential Comment Auto diff final PT 9.8 INR 1.0 APTT 24.7 D-Dimer Quant (PE/DVT) 1.36 H Sodium 142 Potassium 3.4 L Chloride 109 H Carbon Dioxide 25.2 Anion Gap 8 BUN 8 Creatinine 0.78 Estimated GFR Greater than 89 Random Glucose 99 Calcium 8.5 Total Bilirubin 0.2 AST 16 ALT 18 Alkaline Phosphatase 52 Total Creatine Kinase 93 Troponin I 0.18 H B-Natriuretic Peptide Total Protein 7.4 Albumin 3.4 Lipase 132 12/21/17 12/21/17 20:37 21:40 WBC RBC Hgb Hct MCV MCH MCHC RDW Plt Count MPV Neut % (Auto) Lymph % (Auto) [place] % (Auto) Eos % (Auto) Baso % (Auto) Neut # (Auto) Lymph # (Auto) [place] # (Auto) Eos # (Auto) Baso # (Auto) WBC Differential Differential Comment PT 9.9 INR 1.0 APTT 23.8 L D-Dimer Quant (PE/DVT) Sodium Potassium Chloride Carbon Dioxide Anion Gap BUN Creatinine Estimated GFR Random Glucose Calcium Total Bilirubin AST ALT Alkaline Phosphatase Total Creatine Kinase Troponin I B-Natriuretic Peptide 13 Total Protein Albumin Lipase - Imaging Impressions Chest X-Ray 12/21/17 20:25 CONCLUSION: No acute cardiopulmonary disease. Chest CTA 12/21/17 21:02 CONCLUSION: 1. No definite PE. Caprini VTE Risk Assessment Caprini VTE Risk Assessment: No/Low Risk (score <= 1) Caprini Risk Assessment Model: Point Value = 1 Point Value = 2 Point Value = 3 Point Value = 5 Age 41-60 Minor surgery BMI > 25 kg/m2 Swollen legs Varicose veins or History of unexplained or recurrent spontaneous Oral contraceptives or hormone replacement Sepsis (< 1 month) Serious lung disease, including pneumonia (< 1 month) Abnormal pulmonary function Acute myocardial infarction Congestive heart failure (< 1 month) History of inflammatory bowel disease Medical patient at bed rest Age 61-74 Arthroscopic surgery Major open surgery (> 45 min) Laparoscopic surgery (> 45 min) Malignancy Confined to bed (> 72 hours) Immobilizing plaster cast Central venous access Age >= 75 History of VTE Family history of VTE Factor V Leiden Prothrombin [id number] Lupus anticoagulant Anticardiolipin antibodies Elevated serum homocysteine Heparin-induced thrombocytopenia Other congenital or acquired thrombophilia Stroke (< 1 month) Elective arthroplasty Hip, pelvis, or leg fracture Acute spinal cord injury (< 1 month) Prophylaxis Regimen: Total Risk Factor Score Risk Level Prophylaxis Regimen 0-1 Low Early ambulation 2 Moderate Order ONE of the following: *Sequential Compression Device (SCD) *Heparin 5000 units SQ BID 3-4 Higher Order ONE of the following medications: *Heparin 5000 units SQ TID *Enoxaparin/Lovenox 40 mg SQ daily (WT < 150 kg, CrCl > 30 mL/min) *Enoxaparin/Lovenox 30 mg SQ daily (WT < 150 kg, CrCl > 10-29 mL/min) *Enoxaparin/Lovenox 30 mg SQ BID (WT < 150 kg, CrCl > 30 mL/min) AND/OR *Sequential Compression Device (SCD) 5 or more Highest Order ONE of the following medications: *Heparin 5000 units SQ TID (Preferred with Epidurals) *Enoxaparin/Lovenox 40 mg SQ daily (WT < 150 kg, CrCl > 30 mL/min) *Enoxaparin/Lovenox 30 mg SQ daily (WT < 150 kg, CrCl > 10-29 mL/min) *Enoxaparin/Lovenox 30 mg SQ BID (WT < 150 kg, CrCl > 30 mL/min) AND *Sequential Compression Device (SCD) Assessment and Plan - Plan Assessment/plan: 1. NSTEMI Patient presents with chest pain, diaphoresis and shortness of breath EKG negative for signs of ischemia, personally reviewed Initial troponin 0.18 Heparin drip Morphine for pain Nitro patch Cardiology consulted, appreciate assistance Serial troponins/EKGs 2. Multiple sclerosis Continue outpatient follow-up No signs of acute exacerbation at this time Monitor FEN N.p.o. Electrolytes: Status post p.o. repletion of potassium, follow BMP Heparin drip
[2017-12-22 04:18] LABS: Baso % (Auto) 0.3 % (0.0-2.0); Eos # (Auto) 0.1 th/mm3 (0.0-0.4); Eos % (Auto) 1.5 % (0.0-4.0); Hematocrit 31.9 % (35.0-46.0); Hemoglobin 11.1 gm/dL (11.6-15.3); Lymph # (Auto) 2.7 th/mm3 (1.0-4.8); Lymph % (Auto) 28.8 % (9.0-44.0); Mean Corpuscular HGB Conc 34.9 % (32.0-36.0); Mean Corpuscular Hemoglobin 32.2 pg (27.0-34.0); Mean Corpuscular Volume 92.1 fL (80.0-100.0); Mean Platelet Volume 8.5 fL (7.0-11.0); Mono # (Auto) 0.7 th/mm3 (0.0-0.9); Mono % (Auto) 7.8 % (0.0-8.0); Neut # (Auto) 5.9 th/mm3 (1.8-7.7); Neut % (Auto) 61.6 % (16.0-70.0); Platelet Count 204 th/mm3 (150-450); Red Blood Count 3.46 mil/mm3 (4.00-5.30); Red Cell Distribution Width 13.5 % (11.6-17.2); White Blood Count 9.5 th/mm3 (4.0-11.0)
[2017-12-22 04:38] LABS: Anion Gap 8 meq/L (5-15); Blood Urea Nitrogen 7 mg/dL (7-18); Calcium 8.5 mg/dL (8.5-10.1); Carbon Dioxide 25.9 meq/L (21.0-32.0); Chloride 109 meq/L (98-107); Glomerular Filtration Rate Greater Than 89 mL/min (>89); Glucose,Random 106 mg/dL (74-106); Sodium 143 meq/L (136-145)
[2017-12-22 04:45] LABS: Creatine Kinase 77 U/L (26-192)
--- NOTE | 2017-12-22 09:01 | P.CONCA ---
History of Present Illness Consult date: 12/22/17 Reason for Consult: NTEMI Primary Care Provider: Juan Pablo Renteria Family Provider: Juan Pablo Renteria Chief Complaint: Chest Pain History of Present Illness: This is a very pleasant 42 year old female with a past medical history of GERD, MS, and HTN who presented to the ER after one day of intermittently left sided substernal chest pain associated with numbness and tingling down her left arm, diaphoresis, and shortness of breath. The pain occured with exertion and was relieved with rest. The patient was found to have an elevated troponin without any acute EKG changes. She is currently on a heparin gtt and chest pain free. The patient reports that she does not have DM2, HLD, family hx of CAD. She endorses past recreational use of MJ.No contraindication to anticoagulation, no upcoming surgeries. Review of Systems All other systems reviewed negative except as stated in HPI [facility] - History History Provided By: Patient - Medical History Medical History: Medical History (Last Reviewed 12/21/17 @ 22:37 by KERLINE Steele) Cholecystectomy planned (Acute) Multiple sclerosis (Acute) - Surgical History Surgical History: Surgical History (Last Updated 12/21/17 @ 23:11 by Chioma Anaya MD) Hx of tonsillectomy No history of previous surgery - Family History Family History: Family History (Last Updated 12/21/17 @ 23:11 by Chioma Anaya MD) Other Diabetes mellitus - Tobacco History Second Hand Smoke Exposure: Yes Tobacco Use In Past 30 Days: No Smoking Status: Former smoker Tobacco Type: Cigarettes (Marijuna) - Alcohol History How Often Do You Have a Drink Containing Alcohol: Never - Substance Use History Substance History: No History of Abuse - Travel History Recent Travel in the [place] Within the Last 8 Weeks: No Recent Travel Out of the Country Within the Last 8 Weeks: No - Immunization History Tetanus Immunization: >5 Years Hx Influenza Vaccine This Season: No Medications and Allergies Active Medications: Active Medications Heparin Sodium/Dextrose (Heparin/D5w 25,000 U/250 Ml) 25,000 unit in 250 mls @ 0 mls/hr IV.CONT TITRATE PRN; Protocol PRN Reason: Per Protocol Last Titration: 12/22/17 05:28 Dose: 1,100 units/hr, 11 mls/hr Morphine Sulfate (Morphine Inj) 2 mg IV.PUSH Q30M PRN PRN Reason: CHEST PAIN Nitroglycerin (Nitro-Bid 2% Oint) 1 inch TOPICAL Q6HR RITA Last Admin: 12/22/17 05:21 Dose: 1 inch Ondansetron HCl (Zofran Inj) 4 mg IV.PUSH Q6H PRN PRN Reason: NAUSEA OR VOMITING Sodium Chloride (Ns Inj) 2 ml IV.FLUSH BID RITA Sodium Chloride (Ns Inj) 2 ml IV.FLUSH UNSCH PRN PRN Reason: FLUSH AFTER USING IV ACCESS Allergies Allergy/AdvReac Type Severity Reaction Status Date / Time penicillin G Allergy Severe Rash, Verified 12/21/17 21:46 Generalized Home Medications Medication Instructions Recorded Confirmed Type albuterol sulfate [Proventil HFA] 2 puff INHALATION Q4-6H PRN 12/21/17 12/21/17 History gabapentin [Neurontin] 300 PO TID 12/21/17 History Exam Vital signs: Vital Signs 12/21/17 20:17 12/21/17 20:53 12/21/17 23:38 Temperature 98.5 F Pulse Rate 105 H 92 H 89 Respiratory Rate 16 Blood Pressure 157/67 H 137/78 Pulse Oximetry 98 100 100 12/22/17 01:00 12/22/17 02:00 12/22/17 03:00 Temperature Pulse Rate 90 100 H 105 H Respiratory Rate Blood Pressure Pulse Oximetry 12/22/17 04:00 12/22/17 05:00 12/22/17 06:00 Temperature 97.9 F Pulse Rate 98 H 90 95 H Respiratory Rate 20 Blood Pressure 123/72 Pulse Oximetry 99 12/22/17 07:00 12/22/17 08:00 Temperature 98.2 F Pulse Rate 90 87 Respiratory Rate 20 Blood Pressure 114/73 Pulse Oximetry 99 Intake & Output 12/21/17 12/22/17 12/22/17 18:59 06:59 18:59 Output Total 300 / 300 Balance -300 / -300 Weight 148.2 kg Output: Urine 300 / 300 Other: # Incontinent Voids 1 Weight On Admission 147.3 kg - Constitutional no acute distress, obese - Routine HEENT Exam Head: Present: normocephalic Eye: Present: EOMI ENT: Present: mucous membranes moist - Routine Neck Exam Present: supple. Absent: JVD - Routine Chest/Breast/Axilla Exam Chest wall: Absent: tenderness - Routine Respiratory Exam Present: CTA bilaterally - Routine Cardiovascular Exam Present: RRR, S1, S2 - Routine Abdominal Exam Present: soft, normoactive bowel sounds. Absent: tenderness - Routine Extremities Exam Absent: edema - Routine Skin Exam Absent: rash - Routine Neurological Exam Present: alert, oriented X3 - Routine Psychiatric Exam Present: normal affect Results 12/22/17 03:38 12/22/17 03:38 Cardiac Enzymes 12/21/17 12/21/17 12/22/17 Range/Units 20:37 20:37 03:38 AST 16 (15-37) U/L Troponin I 0.18 H 0.30 H D (0.02-0.05) ng/mL B-Natriuretic Peptide 13 (0-100) pg/mL Coagulation 12/21/17 12/21/17 12/21/17 Range/Units 20:37 20:37 21:40 PT 9.8 9.9 (9.8-11.6) sec APTT 24.7 23.8 L (24.3-30.1) sec B-Natriuretic Peptide 13 (0-100) pg/mL 12/22/17 Range/Units 03:38 PT (9.8-11.6) sec APTT 32.4 H D (24.3-30.1) sec B-Natriuretic Peptide (0-100) pg/mL CBC 12/21/17 12/22/17 Range/Units 20:37 03:38 WBC 10.6 9.5 (4.0-11.0) th/mm3 RBC 3.89 L 3.46 L (4.00-5.30) mil/mm3 Hgb 12.4 11.1 L (11.6-15.3) gm/dL Hct 36.2 31.9 L (35.0-46.0) % Plt Count 224 204 (150-450) th/mm3 Neut # (Auto) 6.2 5.9 (1.8-7.7) th/mm3 Lymph # (Auto) 3.3 2.7 (1.0-4.8) th/mm3 [place] # (Auto) 0.9 0.7 (0.0-0.9) th/mm3 Eos # (Auto) 0.2 0.1 (0.0-0.4) th/mm3 Baso # (Auto) 0.0 0.0 (0.0-0.2) th/mm3 Comprehensive Metabolic Panel 12/21/17 12/22/17 Range/Units 20:37 03:38 Sodium 142 143 (136-145) meq/L Potassium 3.4 L 4.0 (3.5-5.1) meq/L Chloride 109 H 109 H (98-107) meq/L Carbon Dioxide 25.2 25.9 (21.0-32.0) meq/L BUN 8 7 (7-18) mg/dL Creatinine 0.78 0.61 (0.50-1.00) mg/dL Calcium 8.5 8.5 (8.5-10.1) mg/dL AST 16 (15-37) U/L ALT 18 (10-53) U/L Alkaline Phosphatase 52 (45-117) U/L Total Protein 7.4 (6.4-8.2) g/dL Albumin 3.4 (3.4-5.0) g/dL Intake and Output 12/21/17 12/22/17 12/22/17 22:59 06:59 14:59 Output Total 300 / 300 Balance -300 / -300 Output: Urine 300 / 300 Other: # Incontinent Voids 1 Weight 135 kg 148.2 kg Weight On Admission 147.3 kg EKG interpretations - Dysrhythmias Sinus rhythms and dysrhythmias: sinus rhythm Assessment and Plan - Assessment (1) Acute non-ST elevation myocardial infarction (NSTEMI) Code(s): I21.4 - Non-ST elevation (NSTEMI) myocardial infarction Status: Acute - Plan Code Status: Will proceed with a coronary angiogram via a right radial approach. Continue heparin gtt (turn off 1 hour prior to cath). ASA 81mg, statin, and beta-adriana. Order Transthoracic Echo to evaluate LV function and valvular pathology
[2017-12-22 09:34] LABS: Troponin I 0.23 ng/mL (0.02-0.05)
--- NOTE | 2017-12-22 10:57 | P.PN ---
Subjective Interval history: Follow-up non-ST elevation NE December 22, 2017-patient seen and examined, continued to complain of chest discomfort, shortness of breath. Case discussed with Dr. Kline, cardiology Physical Exam Vital signs: Vital Signs 12/21/17 20:17 12/21/17 20:53 12/21/17 23:38 Temperature 98.5 F Pulse Rate 105 H 92 H 89 Respiratory Rate 16 Blood Pressure 157/67 H 137/78 Pulse Oximetry 98 100 100 12/22/17 01:00 12/22/17 02:00 12/22/17 03:00 Temperature Pulse Rate 90 100 H 105 H Respiratory Rate Blood Pressure Pulse Oximetry 12/22/17 04:00 12/22/17 05:00 12/22/17 06:00 Temperature 97.9 F Pulse Rate 98 H 90 95 H Respiratory Rate 20 Blood Pressure 123/72 Pulse Oximetry 99 12/22/17 07:00 12/22/17 08:00 12/22/17 09:00 Temperature 98.2 F Pulse Rate 90 87 94 H Respiratory Rate 20 Blood Pressure 114/73 Pulse Oximetry 99 12/22/17 10:00 Temperature Pulse Rate 76 Respiratory Rate Blood Pressure Pulse Oximetry Intake & Output 12/21/17 12/22/17 12/22/17 18:59 06:59 18:59 Output Total 300 / 300 Balance -300 / -300 Weight 148.2 kg Output: Urine 300 / 300 Other: # Incontinent Voids 1 Weight On Admission 147.3 kg Narrative: GENERAL: NAD SKIN: Warm and dry. HEAD: Normocephalic. EYES: No scleral icterus. No injection or drainage. NECK: Supple, trachea midline. No JVD or lymphadenopathy. CARDIOVASCULAR: Regular rate and rhythm without murmurs, gallops, or rubs. RESPIRATORY: Breath sounds equal bilaterally. No accessory muscle use. GASTROINTESTINAL: Abdomen soft, non-tender, nondistended. MUSCULOSKELETAL: No cyanosis, or edema. BACK: Nontender without obvious deformity. No CVA tenderness. Results - Labs CBC & Chem 7: 12/22/17 03:38 12/22/17 03:38 Laboratory Results - last 24 hr 12/21/17 12/21/17 12/21/17 20:37 20:37 20:37 WBC 10.6 RBC 3.89 L Hgb 12.4 Hct 36.2 MCV 93.0 MCH 31.9 MCHC 34.3 RDW 13.4 Plt Count 224 MPV 8.4 Neut % (Auto) 58.3 Lymph % (Auto) 31.2 [place] % (Auto) 8.6 H Eos % (Auto) 1.5 Baso % (Auto) 0.4 Neut # (Auto) 6.2 Lymph # (Auto) 3.3 [place] # (Auto) 0.9 Eos # (Auto) 0.2 Baso # (Auto) 0.0 WBC Differential . Differential Comment Auto diff final PT 9.8 INR 1.0 APTT 24.7 D-Dimer Quant (PE/DVT) 1.36 H Sodium 142 Potassium 3.4 L Chloride 109 H Carbon Dioxide 25.2 Anion Gap 8 BUN 8 Creatinine 0.78 Estimated GFR Greater than 89 Random Glucose 99 Calcium 8.5 Total Bilirubin 0.2 AST 16 ALT 18 Alkaline Phosphatase 52 Total Creatine Kinase 93 Troponin I 0.18 H B-Natriuretic Peptide Total Protein 7.4 Albumin 3.4 Lipase 132 12/21/17 12/21/17 12/22/17 20:37 21:40 03:38 WBC RBC Hgb Hct MCV MCH MCHC RDW Plt Count MPV Neut % (Auto) Lymph % (Auto) [place] % (Auto) Eos % (Auto) Baso % (Auto) Neut # (Auto) Lymph # (Auto) [place] # (Auto) Eos # (Auto) Baso # (Auto) WBC Differential Differential Comment PT 9.9 INR 1.0 APTT 23.8 L D-Dimer Quant (PE/DVT) Sodium 143 Potassium 4.0 Chloride 109 H Carbon Dioxide 25.9 Anion Gap 8 BUN 7 Creatinine 0.61 Estimated GFR Greater than 89 Random Glucose 106 Calcium 8.5 Total Bilirubin AST ALT Alkaline Phosphatase Total Creatine Kinase 77 Troponin I 0.30 H D B-Natriuretic Peptide 13 Total Protein Albumin Lipase 12/22/17 12/22/17 12/22/17 03:38 03:38 08:58 WBC 9.5 RBC 3.46 L Hgb 11.1 L Hct 31.9 L MCV 92.1 MCH 32.2 MCHC 34.9 RDW 13.5 Plt Count 204 MPV 8.5 Neut % (Auto) 61.6 Lymph % (Auto) 28.8 [place] % (Auto) 7.8 Eos % (Auto) 1.5 Baso % (Auto) 0.3 Neut # (Auto) 5.9 Lymph # (Auto) 2.7 [place] # (Auto) 0.7 Eos # (Auto) 0.1 Baso # (Auto) 0.0 WBC Differential . Differential Comment Auto diff final PT INR APTT 32.4 H D D-Dimer Quant (PE/DVT) Sodium Potassium Chloride Carbon Dioxide Anion Gap BUN Creatinine Estimated GFR Random Glucose Calcium Total Bilirubin AST ALT Alkaline Phosphatase Total Creatine Kinase 81 Troponin I 0.23 H B-Natriuretic Peptide Total Protein Albumin Lipase - Imaging Impressions Chest X-Ray 12/21/17 20:25 CONCLUSION: No acute cardiopulmonary disease. Chest CTA 12/21/17 21:02 CONCLUSION: 1. No definite PE. Assessment and Plan - Assessment (1) Acute non-ST elevation myocardial infarction (NSTEMI) Code(s): I21.4 - Non-ST elevation (NSTEMI) myocardial infarction Status: Acute - Plan 42-year-old female with Acute non-ST elevation NE Case discussed with cardiology this a.m. Plan for left heart catheterizations on December 23, 2017 2D echo pending, continue with heparin drip, aspirin, Coreg 3.125 mg daily, Lipitor 40 mg daily Telemetry monitoring Multiple sclerosis Outpatient management DVT prophylaxis: Heparin
[2017-12-22] MEDS ORDERED: Acetaminophen 325 MG Tablet PO PRN (11:47)
--- NOTE | 2017-12-22 12:56 | ECG ---
Date Performed: 12/21/2017 Time Performed: 20:17:57 PTAGE: 42 years EKG: SINUS TACHYCARDIA NONSPECIFIC T-WAVE ABNORMALITY ABNORMAL RHYTHM ECG Compared to PREVIOUS TRACING , the patient has developed minimal T-wave flattening laterally. PREVIOU S TRACIN05/05/2013 07.43 DOCTOR: Rochelle Steel Interpretating Date/Time 12/22/2017 12:54:56
--- NOTE | 2017-12-22 12:56 | ECG ---
Date Performed: 12/22/2017 Time Performed: 02:23:16 PTAGE: 42 years EKG: Sinus rhythm Normal ECG Patient continues to have minimal inferolateral T-wave changes that are slightly improved since the prior tracing. PREVIOUS TRACING : 12/21/2017 20.17 DOCTOR: Rochelle Steel Interpretating Date/Time 12/22/2017 12:55:36
[2017-12-22] MEDS: Heparin Drip 25,000 UNIT/250 ML BAG IV.CONT PRN (21:08)
--- NOTE | 2017-12-22 21:41 | ECG ---
Date Performed: 12/22/2017 Time Performed: 08:40:20 PTAGE: 42 years EKG: Sinus rhythm . Normal ECG NO PREVIOUS TRACING DOCTOR: Lorenzo Martinez Interpretating Date/Time 12/22/2017 21:39:36
[2017-12-23 03:37] LABS: Hemoglobin 11.8 gm/dL (11.6-15.3); Mean Corpuscular HGB Conc 33.8 % (32.0-36.0); Mean Corpuscular Hemoglobin 31.4 pg (27.0-34.0); Mean Corpuscular Volume 93.1 fL (80.0-100.0); Mean Platelet Volume 8.5 fL (7.0-11.0); Platelet Count 216 th/mm3 (150-450); Red Blood Count 3.76 mil/mm3 (4.00-5.30); Red Cell Distribution Width 13.6 % (11.6-17.2); White Blood Count 9.1 th/mm3 (4.0-11.0)
[2017-12-23] MEDS ORDERED: Heparin/NS PF Inj 1,500 ML ONE (07:56)
[2017-12-23] MEDS ORDERED: Heparin 10,000 UNITS/10 ML Vial (for IV use) ONE (07:57)
[2017-12-23] MEDS ORDERED: fentaNYL Citrate Inj 100 MCG/2 ML Ampul ONE (08:51)
--- NOTE | 2017-12-23 09:58 | CATHPROC ---
[facility] HIS Report Study Information Study Number Admission Scheduled Start Study Start [id number] Dec 21 2017 10:27PM 12/23/2017 Dec 23 2017 8:19AM [place] Service Cath Endovascular Study Admit Source Facility Department Emergency department [facility] - Electronic Funds Transfer Coordinator Physician and Clinical Staff Initial MD Monterroso, Terrance Tubular Products Fabricatorkirt Leal RN, Tanya Ghotra,RT(R) Scrub Student, COLOR MAKING SUPERVISOR/RT(R) Scrub Grace Ferrer,RT(R) (BS) Procedures Performed Procedure Location (Site) Vessel Name Coronary Angiograms LCA Left Coronary Coronary Angiograms RCA Right Coronary L Heart Cath Wire insertion Fem Art (right) Femoral Art Equipment Time Electric Fan Assembler Description Size Mfg Part Number Used/Scraped TRANSDUCER, [id number] 08:24 GooseChase * Used W/CRISTINA *[id number] INTRODUCER SET, 09:07 [employer] FR 5 [id number] *[id number] Used MICROPUNCTURE STIFF [id number] *[id number] 08:24 Edvert BLANKET,WARM AIR CCL * Used *[id number] 08:24 Edvert PACK, CCL CUSTOM * Used *[id number] 08:24 Edvert SUPPORT, ARTERIAL ADULT 43856 *[id number] Used [id number] 08:59 MEDTRONIC JL 3.5 DXTERITY CATHETER FR 5 Used *[id number] 09:27 MEDTRONIC JL 4.0 DXTERITY CATHETER FR 5 Used *[id number] 08:24 [employer] MEDICAL WIRE, EXCHANGE 260CM 3MMJ 260CM Used *[id number] 08:24 NAMIC MANIFOLD, 4 PORT * Used *[id number] 08:24 NYCOMED OMNIPAQUE, 350 MG, 150ML 150ML [id number] Used [id number] 09:08 TERUMO MEDICAL SHEATH, FR5 TERUMO (10CM) FR 5 Used *[id number] SHEATH, FR6 TRANSRADIAL [id number] 08:24 TERUMO MEDICAL FR 6 Used SLENDER 10CM *[id number] Equipment Model, Serial, Lot Number and Expiration Data Description Model Number Serial Number Lot Number Expiration Date JL 4.0 DXTERITY CATHETER [id number] 03-25-2020 History: Current Medications Medication Dosage/Unit Route Frequency Last Date/Time Taken ASA Beta Hesham History: Allergies Allergy Reaction penicillin G Rash, Generalized History: Risk Factors Hypertension Yes Chronic Lung Diabetes Disease History: Symptoms/Diagnosis Selection Items Chest pain SOB History: Stress Tests Stress or Imaging Studies Performed No History: Other Current Smoker Method Quit Packs a Day Years Used Pack Years No Cigarettes 1 Years Ago 05 12 22 Labs Hgb (g/dl) Hct (%) WBC (l/cumm) Platelets (thousands) 11.60-17.00 35.00-51.00 4.00-11.00 150.00-450.00 11.8 35 9.1 216 Glucose (mg/dl) BUN (mg/dl) Creatinine (mg/dl) BUN:Creatinine (1:x) 74.00-106.00 7.00-18.00 0.50-1.30 10.00-20.00 106 7 0.6 11.7 Na (meq/l) K (meq/l) 136.00-145.00 3.50-5.10 143 4 INR (PTT:PT) 0.90-1.10 1 Troponin I (ng/ml) CPK-MB (ng/ML) 0.02-0.05 0.50-3.60 0.3 Not Drawn Medication Medication Total Dose (Bolus/Oral) Medication Total Dosage/Unit 1% XYLOCAINE 25 mL FENTANYL 50 mcg LASIX 20 mg VERSED 1 mg ZOFRAN 4 mg Medications (Bolus/Oral) Medication Time Given Dosage/Unit Administered By Reason VERSED 12/23/2017 8:59:22 AM 0.5 mg Black Leal RN 0.5 mg VERSED given in lab by Black Leal RN in Right Antecubital via Peripheral IV. Ordered by Terrance Alvarado FENTANYL 12/23/2017 9:00:11 AM 25 mcg Black Leal RN 25 mcg FENTANYL given in lab by Black Leal RN in Right Antecubital via Peripheral IV. Ordered by Terrance Wright. 1% XYLOCAINE 12/23/2017 9:01:00 AM 5 mL Terrance Monterroso 5 mL 1% XYLOCAINE given in lab by Terrance Monterroso in Right Radial via Subcutaneous. 1% XYLOCAINE 12/23/2017 9:08:52 AM 20 mL Terrance Monterroso 20 mL 1% XYLOCAINE given in lab by Monterroso, Vincent G in Right Groin via Subcutaneous. VERSED 12/23/2017 9:12:50 AM 0.5 mg Elvis PIZANO, Black 0.5 mg VERSED given in lab by Elvis PIZANO, Black in Right Antecubital via Peripheral IV. Ordered by Terrance Alvarado FENTANYL 12/23/2017 9:13:19 AM 25 mcg Elvis PIZANO, Black 25 mcg FENTANYL given in lab by Elvis PIZANO, Black in Right Antecubital via Peripheral IV. Ordered by Terrance Wright ZOFRAN 12/23/2017 9:39:50 AM 4 mg Elvis PIZANO, Black 4 mg ZOFRAN given in lab by Elvis PIZANO, Black in Right Antecubital via Central IV. Ordered by Terrance Monterroso LASIX 12/23/2017 9:55:17 AM 20 mg Elvis PIZANO, Black 20 mg LASIX given in lab by Elvis PIZANO, Black in Right Antecubital via Peripheral IV. Ordered by Terrance Gutierrez Medication (Drip) Medication Time Given Dosage/Unit Concentration/Unit Diluent (ml) Solution IV Solutions 12/23/2017 8:22:51 AM 50 mL (IV) NaCl .9 IV Solutions given in lab by Elvis PIZANO, Black in Right Antecubital via Peripheral IV. Pump/Drip Flow u sing NaCl .9. Initial Case Assessment Chronological Log Time Study Chronological Log 8:22:18 Patient arrived via Bed. 8:22:24 Patient Name, D.O.B, / Armband Verified By R.N. 8:22:25 Consent signed by the physician and the patient and verified by the Electronic Funds Transfer Coordinator staff. 8:22:31 Pre-op and post- op instructions given; patient acknowledges understanding of instructions . 8:22:41 Allens test performed on the right radial and ulnar artery. 8:22:43 Patient has been NPO for More than 6Hrs. 8:22:43 Skin Breakdown- none per pt 8:22:47 Patient Warmer Placed on the Table. 8:22:49 Sanya Prominences Protected 8:22:51 A # 20 IV was noted in the Antecubital (right). Grade = 0 8:22:51 IV Solutions given in lab by Elvis PIZANO, Black in Right Antecubital via Peripheral IV. Pump/ Drip Flow using NaCl .9. 8:22:53 History and physical on the chart or being dictated. 8:22:53 Assessment: Initial Case Vitals capture started with the following parameters, Patient=Adult, Interval=3 min, Initial Mgtjcqvo=384 mmHg, 8:33:12 Deflation Rate=5 mmHg, Cuff placed on Left Arm 8:33:54 HR=77 bpm, ODMM=552/86 mmhg, SpO2=99.0 %, Resp=10 B/min 8:36:10 Reference ECG taken 8:36:50 HR=84 bpm, XTWI=124/96 mmhg, SpO2=99.0 %, Resp=15 B/min 8:37:01 Right Radial and groin(s) prepped with 2% chlorhexidine, and draped after a 3 min. waiting t [place]. 8:39:28 Vitals capture stopped. 8:39:34 Pt moved from lab 4 to lab 3 due to no hemo on screen in room 8:44:45 Patient arrived via Bed in lab 3 Vitals capture started with the following parameters, Patient=Adult, Interval=5 min, Initial Pre sihvd=484 mmHg, 8:47:31 Deflation Rate=5 mmHg, Cuff placed on Left Arm 8:48:46 HR=89 bpm, FCKS=525/93 mmhg, SpO2=95.0 %, Resp=8 B/min 8:49:08 Right Radial and groin(s) prepped with 2% chlorhexidine, and draped after a 3 min. waiting t [place]. 8:49:18 Reference ECG taken 8:51:03 MD arrived. 8:53:39 HR=83 bpm, PDQB=820/82 mmhg, EqE8=819.0 %, Resp=8 B/min 8:56:40 Pressure channel 2 zeroed. 8:58:36 HR=88 bpm, KWSW=015/91 mmhg, SpO2=99 %, Resp=8 B/min Time Out. Correct patient, correct procedure, correct physician, labs, allergies, and equipment verified with labor delivery rn 8:58:52 team present. Fire risk assesment completed (see hard stop sheet for coding). Time Out Concu rred by MD and individual staff in procedure. 8:59:22 0.5 mg VERSED given in lab by Black Leal RN in Right Antecubital via Peripheral IV. Ordere d by Terrance Monterroso 25 mcg FENTANYL given in lab by Black Leal RN in Right Antecubital via Peripheral IV. Ordered by Terrance Monterroso 9:00:11 G. 9:00:52 Case Start 9:01:00 5 mL 1% XYLOCAINE given in lab by Terrance Monterroso in Right Radial via Subcutaneous. 9:03:43 HR=84 bpm, KVWN=502/96 mmhg, SpO2=98.0 %, Resp=8 B/min 9:04:01 Access site was Right Radial Artery . 9:06:16 Unable to advance wire in right radial artery. Access aborted. 9:08:48 HR=82 bpm, RLAR=656/103 mmhg, SpO2=96.0 %, Resp=13 B/min 9:08:52 20 mL 1% XYLOCAINE given in lab by Terrance Monterroso in Right Groin via Subcutaneous. 9:12:20 Access site was Right Femoral Artery via micropuncture. 9:12:34 A SHEATH, FR5 TERUMO (10CM) FR 5 was advanced into the Fem Art (right) using the Percutaneou s technique. 9:12:50 0.5 mg VERSED given in lab by Black Leal RN in Right Antecubital via Peripheral IV. Ordere d by Terrance Monterroso. 9:13:11 HR=72 bpm, DUBK=154/97 mmhg, HqG4=824.0 %, Resp=11 B/min 25 mcg FENTANYL given in lab by Black Leal RN in Right Antecubital via Peripheral IV. Ordered by Terrance Monterroso 9:13:19 G. 9:13:58 An injection in the Fem Art (right) was made through the SHEATH, FR5 TERUMO (10CM) FR 5. Recorded Pressure: Ao, HR=73, Condition=Condition 1 9:14:17 (Aorta) Ao 147/85/107 A JR 4.0 INFINITI CATHETER FR 5 was advanced over a wire. OMNIPAQUE, 350 MG, 150ML 150ML was use d for 9:15:10 injections. Recorded Pressure: LV, HR=76, Condition=Condition 1 9:16:51 (Left Ventricle) LV 136/10/18 Recorded Pressure: LV, Ao, HR=79, Condition=Condition 1 9:17:05 (Left Ventricle) LV 143/9/18, (Aorta) Ao 138/91/112 9:17:46 The RCA was injected and visualized at various angles. OMNIPAQUE, 350 MG, 150ML 150ML used. 9:18:16 Ventricular Fibrillation noted. 9:18:47 KG=116 bpm, COKD=623/71 mmhg, SpO2=94.0 %, Resp=29 B/min 9:18:50 Disposable Defibrillator Pads Placed On Patient. 9:18:52 Pt shocked 200 shannen 9:19:20 Pt still in v-fib. 2nd shock delivered 300 shannen 9:19:35 Pt in normal sinus rhythm 9:23:50 HR=89 bpm, MOBE=411/101 mmhg, SpO2=99 %, Resp=17 B/min After removing the current catheter a JL 4.0 DXTERITY CATHETER FR 5 was advanced over a WIRE, E XCHANGE 260CM 9:28:05 3MMJ 260CM. 9:28:12 IS=814 bpm, POCN=286/95 mmhg, SjT6=079.0 %, Resp=15 B/min 9:29:24 The LCA was injected and visualized at various angles. OMNIPAQUE, 350 MG, 150ML 150ML used . 9:31:33 A WIRE, EXCHANGE 260CM 3MMJ 260CM was inserted via Fem Art (right). 9:32:03 Wire removed 9:33:13 KT=396 bpm, GJTW=841/97 mmhg, SpO2=98.0 %, Resp=13 B/min 9:35:36 Catheter was removed 9:36:22 Case End (Physician broke scrub) 9:38:12 HR=95 bpm, VTBH=687/99 mmhg, SpO2=99.0 %, Resp=11 B/min 9:39:38 Sheath(s) left in place, will be removed in pt's room 9:39:50 4 mg ZOFRAN given in lab by Black Leal RN in Right Antecubital via Central IV. Ordered by Terrance Monterroso 9:39:53 Sterile dressing applied to site 9:40:15 Case complication noted. 9:40:21 Cine recording checked. 9:40:23 Bedside Report will be given. 9:40:39 A Left Heart Cath was performed. 9:43:19 HR=95 bpm, CNEA=012/72 mmhg, SpO2=98.0 %, Resp=18 B/min 9:45:41 Patient moved to bed 9:48:16 HR=82 bpm, KATU=969/106 mmhg, SpO2=99 %, Resp=15 B/min 9:52:48 Vitals capture stopped. 9:53:35 NIBP STAT measurement started. 9:54:19 LJDD=356/99 mmhg, AbW2=751.0 % 9:55:17 20 mg LASIX given in lab by Black Leal RN in Right Antecubital via Peripheral IV. Ordered by Terrance Monterroso End Study - Contrast Media Used In Study Contrast Total Opened (mL) Total Used (mL) Total Wasted (mL) Omnipaque 150 100 50 End Study - Maximum Contrast Load Max Contrast Load (mL) 1215.2 End Study - Radiation Exposure Fluoro Time (minutes) 3.4 End Study - Patient Disposition Complications Transferred To Interventional Outcome Not selected Telemetry Bed No attempt made
[2017-12-23 10:27] VITALS: TEMP 97.9
[2017-12-23] MEDS ORDERED: amLODIPine 5 MG Tablet PO SCH (11:30)
--- NOTE | 2017-12-23 12:01 | P.PNCA ---
Subjective Interval history: Patient underwent coronary angiogram, during that the patient had Vfib arrest requiring DCCV. There is an area of bridging that was found which may explain the chest pain. Physical Exam Vital signs: Vital Signs 12/22/17 12:00 12/22/17 13:00 12/22/17 14:00 Temperature 98.1 F Pulse Rate 90 96 H 88 Respiratory Rate 18 Blood Pressure 135/82 Pulse Oximetry 100 12/22/17 15:00 12/22/17 16:00 12/22/17 17:00 Temperature 98.2 F Pulse Rate 84 88 80 Respiratory Rate 18 Blood Pressure 140/93 H Pulse Oximetry 100 12/22/17 18:00 12/22/17 19:00 12/22/17 20:00 Temperature 98.9 F Pulse Rate 85 94 H 99 H Respiratory Rate 18 Blood Pressure 155/54 H Pulse Oximetry 100 12/22/17 21:00 12/22/17 22:00 12/22/17 23:00 Temperature Pulse Rate 84 86 84 Respiratory Rate Blood Pressure Pulse Oximetry 12/23/17 00:00 12/23/17 01:00 12/23/17 02:00 Temperature 98.9 F Pulse Rate 79 96 H 74 Respiratory Rate 18 Blood Pressure 145/91 H Pulse Oximetry 99 12/23/17 03:00 12/23/17 04:00 12/23/17 05:00 Temperature 98.9 F Pulse Rate 84 86 93 H Respiratory Rate 18 Blood Pressure 113/56 L Pulse Oximetry 98 12/23/17 06:00 12/23/17 07:00 12/23/17 08:00 Temperature 98.7 F Pulse Rate 80 93 H 93 H Respiratory Rate 18 Blood Pressure 120/92 H Pulse Oximetry 94 L 12/23/17 10:00 12/23/17 10:07 Temperature 97.9 F Pulse Rate 78 80 Respiratory Rate 18 Blood Pressure 145/93 H Pulse Oximetry 100 Intake & Output 12/22/17 12/23/17 12/23/17 18:59 06:59 18:59 Intake Total 640 / 640 826 / 826 Output Total 2500 / 2500 Balance 640 / 640 -1674 / -1678 Weight 145.8 kg Intake: IV 346 / 346 Heparin/D5W 25,000 U/250 mL 25, 346 / 346 000 unit In 250 ml @ Per Protocol IV.CONT TITRATE PRN Rx #:[id number] Oral 640 / 640 480 / 480 Output: Urine 2500 / 2500 Other: # Voids 4 1 - Constitutional no acute distress - Routine HEENT Exam Eye: Present: EOMI, PERRL - Routine Respiratory Exam Present: CTA bilaterally - Routine Cardiovascular Exam Present: RRR, S1, S2 - Routine Abdominal Exam Present: soft, normoactive bowel sounds - Routine Neurological Exam Present: alert, oriented X3 Assessment and Plan - Assessment (1) Acute non-ST elevation myocardial infarction (NSTEMI) Code(s): I21.4 - Non-ST elevation (NSTEMI) myocardial infarction Status: Acute - Plan The chest pain and elevated troponin likely explained by the LAD bridge. Given the DCCV during the cath would monitor her overnight. Will continue ASA 81mg. Norvasc added by Dr. Monterroso (greatly appreciated). Will uptirate norvasc and coreg to control BP. The patient can likely be discharged tommorow
--- NOTE | 2017-12-23 14:01 | MA ---
cc: Terrance Monterroso DO DATE: 12/23/2017 PROCEDURE: Left heart catheterization, coronary angiogram, moderate sedation 37 minutes, defibrillation for ventricular fibrillation x2. PREOPERATIVE DIAGNOSIS: Chest pain, elevated troponins, non-ST elevation myocardial infarction. POSTOPERATIVE DIAGNOSIS: Myocardial bridging of the LAD, ventricular fibrillation, status post defibrillation x2. Possible possible R-on-T phenomenon. MEDICATIONS: Versed 1 mg, fentanyl 50 mcg, nitro 200 mcg, verapamil 2.5 mg, heparin 4000 units, Zofran 4 mg. CONTRAST USED: 100 mL FLUOROSCOPY: 3.4 minutes. MODERATE SEDATION: 37 minutes. FRAILTY SCORE: Three. ESTIMATED BLOOD LOSS: 10 mL PROCEDURAL SUMMARY: Goldie Caal is a pleasant 42-year-old female who presented to [facility] emergency room due to chest pain. She was noted to have an elevated blood pressure, but not significantly high. She was noted to have elevated troponins and because of this, she was recommended cardiac catheterization. Risks, benefits and alternatives were explained to her and she consented as such. She was brought to the lab and prepped in the usual sterile fashion. The right radial artery was attempted to be accessed, but I was unable to thread the wire and so this was aborted. right femoral artery was accessed using a modified Seldinger technique and placement of a 5-Argent[place] sheath. This is easily aspirated and flushed. A JR4 was advanced over a J-wire to the ascending aorta and across the aortic valve for measurement of left ventricular pressure. This was pulled back across the aortic valve showing no significant gradient of aortic stenosis. A JR4 was used for selective angiography of the right coronary artery system. After the second injection of the RCA the patient was noted to have a PVC essentially on the T-wave of the previous beat and then she went into ventricular fibrillation. She was defibrillated twice with 30 seconds of CPR in between and came back 2. She was briefly confused, but this all cleared up. She was diaphoretic during the episode. Neurologically there seemed to be no changes and she was able to move all 4 extremities. She was oriented x3, and no cranial nerve deficits. JR4 was exchanged for a JL4, which was used for selective angiography of the left coronary artery system. JL4 was removed over a wire. Femoral sheath was removed and pressure was held for hemostasis. The patient left the labor relations manager cardiovascularly stable. FINDINGS: LEFT MAIN: Normal-sized vessel with adequate reflux. It trifurcates into an LAD, circumflex, and ramus. LAD: Moderate size vessel with 10% disease throughout the proximal portion. At the start of the mid portion, there appears to be myocardial bridging with a long tortuous area, which appears to all be intracardiac before the distal portion has no significant disease. It gives off one diagonal with no significant disease. LEFT CIRCUMFLEX: Moderate size vessel with no significant disease. It gives off 1 major obtuse marginal with no significant disease. RCA: Moderate sized vessel with mild luminal irregularities, but no significant disease. It supplies a PDA as well as a posterolateral branch. LVEDP 18. IMPRESSION: 1. Hypertension. 2. Minimally elevated troponin, most likely due to myocardial bridging with hypertension. 3. Ventricular fibrillation, which may be due to catheter-induced versus R-on-T phenomenon requiring 2 defibrillations. RECOMMENDATIONS: 1. Ms. Caal underwent cardiac catheterization and was found to have a long tubular lesion, which appears to be intramuscular. Further, she will be recommended for medical management. I have increased her Coreg to 6.25 mg b.i.d. and added Norvasc 5 mg daily. 2. During the case, she ended up having ventricular fibrillation requiring 2 defibrillations. During this she did lose consciousness and CPR was started, but she did not need to be intubated or further intervention. She came back and no neurological deficits were noted. It is always possible that this could be catheter-induced, but the RCA is a large vessel and injection was not made into the conus. In reviewing the rhythm strip, it appears that she had a PVC right on her T-wave which could have caused R-on-T phenomenon, possibly. I have increased her beta adriana therapy. 3. A 2-D echo is pending at this time. 4. I discussed the case with Dr. Ragland, the attending on the case. I also discussed the case with Dr. Kline, who will be following up with the patient. 5. I discussed the case with the patient and her family and explained myocardial bridging as well as her ventricular fibrillation requiring defibrillation. Thank you for allowing me to see Goldie Caal. If there are any questions, please do not hesitate to call. Terrance Monterroso DO VGP/ct , 01:24 PM , 01:37 PM
--- NOTE | 2017-12-23 14:39 | P.PN ---
Subjective Interval history: Follow-up non-ST elevation NE December 22, 2017-patient seen and examined, continued to complain of chest discomfort, shortness of breath. Case discussed with Dr. Kline, cardiology December 23, 2017-patient seen and examined, she had LHC during which she went into Vfib arrest requiring DCCV. Physical Exam Vital signs: Vital Signs 12/22/17 15:00 12/22/17 16:00 12/22/17 17:00 Temperature 98.2 F Pulse Rate 84 88 80 Respiratory Rate 18 Blood Pressure 140/93 H Pulse Oximetry 100 12/22/17 18:00 12/22/17 19:00 12/22/17 20:00 Temperature 98.9 F Pulse Rate 85 94 H 99 H Respiratory Rate 18 Blood Pressure 155/54 H Pulse Oximetry 100 12/22/17 21:00 12/22/17 22:00 12/22/17 23:00 Temperature Pulse Rate 84 86 84 Respiratory Rate Blood Pressure Pulse Oximetry 12/23/17 00:00 12/23/17 01:00 12/23/17 02:00 Temperature 98.9 F Pulse Rate 79 96 H 74 Respiratory Rate 18 Blood Pressure 145/91 H Pulse Oximetry 99 12/23/17 03:00 12/23/17 04:00 12/23/17 05:00 Temperature 98.9 F Pulse Rate 84 86 93 H Respiratory Rate 18 Blood Pressure 113/56 L Pulse Oximetry 98 12/23/17 06:00 12/23/17 07:00 12/23/17 08:00 Temperature 98.7 F Pulse Rate 80 93 H 93 H Respiratory Rate 18 Blood Pressure 120/92 H Pulse Oximetry 94 L 12/23/17 10:00 12/23/17 10:07 12/23/17 10:22 Temperature 97.9 F 97.9 F Pulse Rate 78 80 82 Respiratory Rate 18 18 Blood Pressure 145/93 H 148/84 H Pulse Oximetry 100 100 12/23/17 10:37 12/23/17 10:52 12/23/17 11:00 Temperature Pulse Rate 89 83 77 Respiratory Rate 18 18 Blood Pressure 166/96 H 153/71 H Pulse Oximetry 100 99 12/23/17 11:22 12/23/17 11:52 12/23/17 12:00 Temperature Pulse Rate 95 H 92 H 86 Respiratory Rate 18 18 Blood Pressure 136/89 120/83 Pulse Oximetry 100 99 12/23/17 12:22 12/23/17 12:52 12/23/17 13:00 Temperature Pulse Rate 95 H 77 90 Respiratory Rate 18 20 Blood Pressure 127/88 130/91 H Pulse Oximetry 99 99 12/23/17 13:52 12/23/17 14:00 Temperature Pulse Rate 91 H 80 Respiratory Rate 18 Blood Pressure 156/99 H Pulse Oximetry 98 Intake & Output 12/22/17 12/23/17 12/23/17 18:59 06:59 18:59 Intake Total 640 / 640 826 / 826 Output Total 2500 / 2500 Balance 640 / 640 -1674 / -1674 Weight 145.8 kg Intake: IV 346 / 346 Heparin/D5W 25,000 U/250 mL 25, 346 / 346 000 unit In 250 ml @ Per Protocol IV.CONT TITRATE PRN Rx #:[id number] Oral 640 / 640 480 / 480 Output: Urine 2500 / 2500 Other: # Voids 4 1 Narrative: GENERAL: NAD SKIN: Warm and dry. HEAD: Normocephalic. EYES: No scleral icterus. No injection or drainage. NECK: Supple, trachea midline. No JVD or lymphadenopathy. CARDIOVASCULAR: Regular rate and rhythm without murmurs, gallops, or rubs. RESPIRATORY: Breath sounds equal bilaterally. No accessory muscle use. GASTROINTESTINAL: Abdomen soft, non-tender, nondistended. MUSCULOSKELETAL: No cyanosis, or edema. BACK: Nontender without obvious deformity. No CVA tenderness. Results - Labs CBC & Chem 7: 12/23/17 03:04 12/22/17 03:38 Laboratory Results - last 24 hr 12/22/17 12/23/17 12/23/17 19:57 03:04 03:04 WBC 9.1 RBC 3.76 L Hgb 11.8 Hct 35.0 MCV 93.1 MCH 31.4 MCHC 33.8 RDW 13.6 Plt Count 216 MPV 8.5 APTT 30.8 H 34.7 H 12/23/17 11:48 WBC RBC Hgb Hct MCV MCH MCHC RDW Plt Count MPV APTT 26.9 D Assessment and Plan - Assessment (1) Acute non-ST elevation myocardial infarction (NSTEMI) Code(s): I21.4 - Non-ST elevation (NSTEMI) myocardial infarction Status: Acute - Plan 42-year-old female with Acute non-ST elevation NE Patient had left heart catheterizations on December 23, 2017 complicated by Vfib arrest requiring DCCV 2D echo pending, off heparin drip, continue aspirin, Coreg 3.125 mg daily, Lipitor 40 mg daily Telemetry monitoring Multiple sclerosis Outpatient management DVT prophylaxis: Heparin
[2017-12-23] MEDS: Morphine Sulfate Inj 2 MG/ML Vial IV.PUSH PRN (16:20)
[2017-12-23 17:36] VITALS: BP 156/98; O2SAT 99
[2017-12-23] MEDS ORDERED: Iohexol 350 MG/ML 100 ML Vial (for Cath Lab) IVCONTRAST ONE (18:09)
[2017-12-23] MEDS: Carvedilol 6.25 MG Tablet PO SCH (20:42)
[2017-12-23] MEDS ORDERED: amLODIPine 10 MG Tablet PO SCH (22:50)
[2017-12-24 06:13] LABS: Baso % (Auto) 0.3 % (0.0-2.0); Eos # (Auto) 0.1 th/mm3 (0.0-0.4); Eos % (Auto) 1.5 % (0.0-4.0); Hematocrit 35.9 % (35.0-46.0); Hemoglobin 12.5 gm/dL (11.6-15.3); Lymph # (Auto) 2.6 th/mm3 (1.0-4.8); Lymph % (Auto) 26.6 % (9.0-44.0); Mean Corpuscular HGB Conc 34.8 % (32.0-36.0); Mean Corpuscular Hemoglobin 31.7 pg (27.0-34.0); Mean Corpuscular Volume 91.3 fL (80.0-100.0); Mean Platelet Volume 8.8 fL (7.0-11.0); Mono # (Auto) 0.8 th/mm3 (0.0-0.9); Mono % (Auto) 8.3 % (0.0-8.0); Neut # (Auto) 6.3 th/mm3 (1.8-7.7); Neut % (Auto) 63.3 % (16.0-70.0); Platelet Count 235 th/mm3 (150-450); Red Blood Count 3.93 mil/mm3 (4.00-5.30); Red Cell Distribution Width 13.4 % (11.6-17.2); White Blood Count 9.9 th/mm3 (4.0-11.0)
[2017-12-24 06:40] LABS: Anion Gap 8 meq/L (5-15); Calcium 8.9 mg/dL (8.5-10.1); Carbon Dioxide 25.2 meq/L (21.0-32.0); Chloride 107 meq/L (98-107); Glomerular Filtration Rate Greater Than 89 mL/min (>89); Glucose,Random 97 mg/dL (74-106); Potassium 3.9 meq/L (3.5-5.1); Sodium 140 meq/L (136-145)
[2017-12-24 06:53] LABS: Blood Urea Nitrogen 8 mg/dL (7-18)
--- NOTE | 2017-12-24 07:02 | P.PNCA ---
Subjective Interval history: No acute events. Physical Exam Vital signs: Vital Signs 12/23/17 08:00 12/23/17 10:00 12/23/17 10:07 Temperature 98.7 F 97.9 F Pulse Rate 93 H 78 80 Respiratory Rate 18 18 Blood Pressure 120/92 H 145/93 H Pulse Oximetry 94 L 100 12/23/17 10:22 12/23/17 10:37 12/23/17 10:52 Temperature 97.9 F Pulse Rate 82 89 83 Respiratory Rate 18 18 18 Blood Pressure 148/84 H 166/96 H 153/71 H Pulse Oximetry 100 100 99 12/23/17 11:00 12/23/17 11:22 12/23/17 11:52 Temperature Pulse Rate 77 95 H 92 H Respiratory Rate 18 18 Blood Pressure 136/89 120/83 Pulse Oximetry 100 99 12/23/17 12:00 12/23/17 12:22 12/23/17 12:52 Temperature Pulse Rate 86 95 H 77 Respiratory Rate 18 20 Blood Pressure 127/88 130/91 H Pulse Oximetry 99 99 12/23/17 13:00 12/23/17 13:52 12/23/17 14:00 Temperature Pulse Rate 90 91 H 80 Respiratory Rate 18 Blood Pressure 156/99 H Pulse Oximetry 98 12/23/17 14:52 12/23/17 15:00 12/23/17 15:52 Temperature Pulse Rate 89 82 73 Respiratory Rate 18 20 Blood Pressure 143/98 H 145/93 H Pulse Oximetry 98 98 12/23/17 16:00 12/23/17 16:52 12/23/17 17:00 Temperature Pulse Rate 70 74 78 Respiratory Rate 20 Blood Pressure 156/98 H Pulse Oximetry 99 12/23/17 18:00 12/23/17 19:00 12/23/17 20:00 Temperature Pulse Rate 80 82 88 Respiratory Rate Blood Pressure Pulse Oximetry 12/23/17 21:00 12/23/17 22:00 12/23/17 23:00 Temperature Pulse Rate 84 78 84 Respiratory Rate Blood Pressure Pulse Oximetry 12/24/17 00:00 12/24/17 01:00 12/24/17 02:00 Temperature Pulse Rate 82 78 81 Respiratory Rate 16 Blood Pressure Pulse Oximetry 12/24/17 03:00 12/24/17 04:00 12/24/17 04:30 Temperature Pulse Rate 86 74 Respiratory Rate 16 Blood Pressure Pulse Oximetry 12/24/17 05:00 12/24/17 06:00 Temperature Pulse Rate 70 82 Respiratory Rate Blood Pressure Pulse Oximetry Intake & Output 12/23/17 12/24/17 12/24/17 18:59 06:59 18:59 Intake Total 694 / 694 702 / 702 Output Total 1200 / 1200 750 / 750 Balance -506 / -506 -48 / -48 Weight 145.2 kg Intake: IV 54 / 54 Heparin/D5W 25,000 U/250 mL 25, 54 / 54 000 unit In 250 ml @ Per Protocol IV.CONT TITRATE PRN Rx #:[id number] Oral 640 / 640 702 / 702 Output: Urine 1200 / 1200 750 / 750 Other: # Voids 3 # Bowel Movements 0 - Constitutional no acute distress - Routine HEENT Exam Head: Present: normocephalic Eye: Present: EOMI ENT: Present: mucous membranes moist - Routine Respiratory Exam Present: CTA bilaterally - Routine Cardiovascular Exam Present: RRR, S1, S2 - Routine Abdominal Exam Present: soft, normoactive bowel sounds - Routine Extremities Exam Absent: edema - Routine Neurological Exam Present: alert, oriented X3 - Routine Psychiatric Exam Present: normal affect Assessment and Plan - Assessment (1) Acute non-ST elevation myocardial infarction (NSTEMI) Code(s): I21.4 - Non-ST elevation (NSTEMI) myocardial infarction Status: Acute - Plan This episode was likely mediated by myocardial bridging and HTN. Plan to d/c on amlodipine in addition to coreg, statin, asa. The patient will follow up as an outpatient. She can be discharged home today. Please feel free to call me with any questions. Thank you for allowing me to participate.
[2017-12-24] MEDS: Carvedilol 6.25 MG Tablet PO SCH (08:07)
[2017-12-24] MEDS: Morphine Sulfate Inj 2 MG/ML Vial IV.PUSH PRN ×2 (08:12→12:02)
[2017-12-24 08:19] VITALS: RESP 18
--- NOTE | 2017-12-24 09:44 | P.PN ---
Subjective Interval history: telemetry in - SR no complains of chest pain or shortness of breath Physical Exam Vital signs: Vital Signs 12/23/17 10:00 12/23/17 10:07 12/23/17 10:22 Temperature 97.9 F 97.9 F Pulse Rate 78 80 82 Respiratory Rate 18 18 Blood Pressure 145/93 H 148/84 H Pulse Oximetry 100 100 12/23/17 10:37 12/23/17 10:52 12/23/17 11:00 Temperature Pulse Rate 89 83 77 Respiratory Rate 18 18 Blood Pressure 166/96 H 153/71 H Pulse Oximetry 100 99 12/23/17 11:22 12/23/17 11:52 12/23/17 12:00 Temperature Pulse Rate 95 H 92 H 86 Respiratory Rate 18 18 Blood Pressure 136/89 120/83 Pulse Oximetry 100 99 12/23/17 12:22 12/23/17 12:52 12/23/17 13:00 Temperature Pulse Rate 95 H 77 90 Respiratory Rate 18 20 Blood Pressure 127/88 130/91 H Pulse Oximetry 99 99 12/23/17 13:52 12/23/17 14:00 12/23/17 14:52 Temperature Pulse Rate 91 H 80 89 Respiratory Rate 18 18 Blood Pressure 156/99 H 143/98 H Pulse Oximetry 98 98 12/23/17 15:00 12/23/17 15:52 12/23/17 16:00 Temperature Pulse Rate 82 73 70 Respiratory Rate 20 Blood Pressure 145/93 H Pulse Oximetry 98 12/23/17 16:52 12/23/17 17:00 12/23/17 18:00 Temperature Pulse Rate 74 78 80 Respiratory Rate 20 Blood Pressure 156/98 H Pulse Oximetry 99 12/23/17 19:00 12/23/17 20:00 12/23/17 21:00 Temperature Pulse Rate 82 88 84 Respiratory Rate Blood Pressure Pulse Oximetry 12/23/17 22:00 12/23/17 23:00 12/24/17 00:00 Temperature Pulse Rate 78 84 82 Respiratory Rate 16 Blood Pressure Pulse Oximetry 12/24/17 01:00 12/24/17 02:00 12/24/17 03:00 Temperature Pulse Rate 78 81 86 Respiratory Rate Blood Pressure Pulse Oximetry 12/24/17 04:00 12/24/17 04:30 12/24/17 05:00 Temperature Pulse Rate 74 70 Respiratory Rate 16 Blood Pressure Pulse Oximetry 12/24/17 06:00 12/24/17 08:18 Temperature Pulse Rate 82 Respiratory Rate 18 Blood Pressure Pulse Oximetry Intake & Output 12/23/17 12/24/17 12/24/17 18:59 06:59 18:59 Intake Total 694 / 694 702 / 702 Output Total 1200 / 1200 750 / 750 Balance -506 / -506 -48 / -48 Weight 145.2 kg Intake: IV 54 / 54 Heparin/D5W 25,000 U/250 mL 25, 54 / 54 000 unit In 250 ml @ Per Protocol IV.CONT TITRATE PRN Rx #:[id number] Oral 640 / 640 702 / 702 Output: Urine 1200 / 1200 750 / 750 Other: # Voids 3 # Bowel Movements 0 Narrative: awake and alertt, no acute distress anciteric no nuchal rigidity lungs- no rales regular rhtyhm abdmen soft, nntender right groin- no hematoma extremities good epripheral pulses, no edema Results - Labs CBC & Chem 7: 12/24/17 05:29 12/24/17 05:29 Laboratory Results - last 24 hr 12/23/17 12/24/17 12/24/17 11:48 05:29 05:29 WBC 9.9 RBC 3.93 L Hgb 12.5 Hct 35.9 MCV 91.3 MCH 31.7 MCHC 34.8 RDW 13.4 Plt Count 235 MPV 8.8 Neut % (Auto) 63.3 Lymph % (Auto) 26.6 [place] % (Auto) 8.3 H Eos % (Auto) 1.5 Baso % (Auto) 0.3 Neut # (Auto) 6.3 Lymph # (Auto) 2.6 [place] # (Auto) 0.8 Eos # (Auto) 0.1 Baso # (Auto) 0.0 WBC Differential . Differential Comment Auto diff final APTT 26.9 D Sodium 140 Potassium 3.9 Chloride 107 Carbon Dioxide 25.2 Anion Gap 8 BUN 8 Creatinine 0.61 Estimated GFR Greater than 89 Random Glucose 97 Calcium 8.9 - Procedures cardiac catheterization Assessment and Plan - Assessment (1) Acute non-ST elevation myocardial infarction (NSTEMI) Code(s): I21.4 - Non-ST elevation (NSTEMI) myocardial infarction Status: Acute - Plan 42-year-old female with ACS, Acute non-ST elevation [place] S/P left heart catheterizations on December 23, 2017 complicated by Vfib arrest requiring DCCV continue aspirin, Coreg 3.125 mg daily, Lipitor 40 mg daily Amlodipine 10 mg daily, Imdur 30 mg daily Multiple sclerosis Outpatient management Non smoker, admits to occasoinal marijuanan use Advise on weight reduction DC home today- OP ff up with PCP- per patient she is going to set up with another PCP ff up with Dr Kline - Cardioogist in 1 week
[2017-12-24] MEDS ORDERED: Isosorbide Mononitrate 30 MG ER 24HR Tablet (Imdur) PO SCH (11:00)
[2017-12-24 12:53] VITALS: PULSE 86
--- NOTE | 2017-12-24 16:14 | ECHRPT ---
Indication: Chest Pain CONCLUSIONS Wall thickness is normal. The left ventricular systolic function is normal with an estimated ejection fraction in the range of 55-60%. Trace mitral valve regurgitation. There is trace tricuspid valve regurgitation. The estimated pulmonary arterial pressure is 24 mmHg. BP: / HR: Rhythm: MEASUREMENTS (Male / Female) Normal Values Technical Quality:Fair 2D ECHO LV Diastolic Diameter PLAX 5.3 cm 4.2 - 5.9 / 3.9 - 5.3 cm LV Systolic Diameter PLAX 3.7 cm IVS Diastolic Thickness 1.1 cm 0.6 - 1.0 / 0.6 - 0.9 cm LVPW Diastolic Thickness 1.1 cm 0.6 - 1.0 / 0.6 - 0.9 cm LV Relative Wall Thickness 0.4 RV Internal Dim ED PLAX 2.4 cm LVOT Diameter 2.1 cm Aortic Root Diameter 3.1 cm LA Systolic Diameter LX 3.2 cm 3.0 - 4.0 / 2.7 - 3.8 cm M-MODE AV Cusp Separation MM 2.2 cm DOPPLER AV Peak Velocity 130.0 cm/s AV Peak Gradient 6.8 mmHg LVOT Peak Velocity 119.0 cm/s LVOT Peak Gradient 5.7 mmHg AV Area Cont Eq pk 3.2 cm Mitral E Point Velocity 49.4 cm/s Mitral A Point Velocity 54.8 cm/s Mitral E to A Ratio 0.9 LV E' Lateral Velocity 10.3 cm/s Mitral E to LV E' Lateral Ratio 4.8 LV E' Septal Velocity 7.0 cm/s Mitral E to LV E' Septal Ratio 7.0 TR Peak Velocity 191.0 cm/s TR Peak Gradient 14.6 mmHg Right Atrial Pressure 10.0 mmHg Pulmonary Artery Systolic Pressu 24.6 mmHg Right Ventricular Systolic Press 24.6 mmHg PV Peak Velocity 93.7 cm/s PV Peak Gradient 3.5 mmHg FINDINGS LEFT VENTRICLE Wall thickness is normal. The left ventricular systolic function is normal with an estimated ejection fraction in the range of 55-60%. RIGHT VENTRICLE Normal right ventricular size and systolic function. LEFT ATRIUM The left atrial size is normal. RIGHT ATRIUM The right atrial size is normal. ATRIAL SEPTUM Normal atrial septal thickness without atrial level shunting by limited color doppler interrogation. AORTA The aortic root and proximal ascending aorta are normal in size on limited imaging. MITRAL VALVE Trace mitral valve regurgitation. AORTIC VALVE Trileaflet aortic valve. No aortic valve stenosis or regurgitation. TRICUSPID VALVE There is trace tricuspid valve regurgitation. The estimated pulmonary arterial pressure is 24 mmHg. PULMONARY VALVE No pulmonary valve regurgitation or stenosis. VESSELS The inferior vena cava is normal in size. PERICARDIUM No pericardial effusion. Ezio Vega MD, FACC, [facility] [place] [facility] [place] ([place]ronically Signed) Final Date:24 December 2017 16:13
--- NOTE | 2018-01-13 12:00 | P.DS ---
Date of admission: 12/21/17 22:27 Primary care physician: Juan Pablo Renteria Anticipated date of discharge: 12/24/17 Brief History from admission: 42-year-old female with a past medical history significant for multiple sclerosis and GERD presents to the emergency department for evaluation of chest pain. The patient reports that her chest pain started yesterday afternoon while she was relaxing outside. She denies any associated activity. She states that the pain alternates between a pressure and a stabbing sensation. She states it worsened yesterday evening and started to radiate down her left hand to her fingers and up the left side of her neck to her jaw. The patient endorses associated shortness of breath and intermittent diaphoresis. She denies any nausea/vomiting/abdominal pain. No fever or chills. No headache or weakness. Patient update on day of discharge: stable vital signs, chest pain free DS: Diagnosis - Discharge Diagnosis (1) Acute non-ST elevation myocardial infarction (NSTEMI) Status: Acute DS: Medications - Discharge Medications Prescriptions: amlodipine [Norvasc] 10 mg PO DAILY #30 tab aspirin 81 mg PO DAILY #90 tab atorvastatin 40 mg PO HS #30 tab carvedilol [Coreg] 6.25 mg PO BID #60 tab isosorbide mononitrate 30 mg PO DAILY@0700 #30 tab DS: Summary Hospital Course: 42-year-old female with ACS, Acute non-ST elevation [place] S/P left heart catheterizations on December 23, 2017 complicated by Vfib arrest requiring DCCV continue aspirin, Coreg 3.125 mg daily, Lipitor 40 mg daily Amlodipine 10 mg daily, Imdur 30 mg daily Multiple sclerosis Outpatient management Non smoker, admits to occasoinal marijuanan use Advise on weight reduction DC home today- OP ff up with PCP- per patient she is going to set up with another PCP ff up with Dr Kline - Cardioogist in 1 week - Time Spent with Patient Total time spent providing and/or coordinating discharge services: Less than 30 minutes - Quality: VTE Deep Vein Thrombosis/Pulmonary Embolism Present on Admission: No Exam Narrative: awake and alertt, no acute distress anicteric no nuchal rigidity lungs- no rales regular rhtyhm abdomen soft, nontender right groin- no hematoma extremities good peripheral pulses, no edema Results Procedures completed during hospitalization: cardiac catheterization - Impressions ITS Impressions Chest X-Ray 12/21/17 20:25 CONCLUSION: No acute cardiopulmonary disease. Chest CTA 12/21/17 21:02 CONCLUSION: 1. No definite PE. Discharge Plan - Discharge Disposition Patient Disposition: 01 Discharge Home - Discharge Condition Condition: Stable - Discharge Order Discharge Orders: Discharge Order (Routine); Ordered 12/24/17 Ordered By: Tammy Chang - Discharge Details Anticipated Discharge Date: 12/24/17 - Physicians Team Primary Care Provider: Juan Pablo Renteria Attending Provider: Tammy Chang Other Providers: [place],Insurance ; Addison Kline MD
== END 2017-12-24 14:21 | disposition home or self-care (01) ==
LOC: NEPE 20:12 → NEDA 22:27 → HCIS 12-22 00:34
PROVIDERS: ADMIT Internal Medicine; ATTEND Internal Medicine